=== PATIENT | female | born 1940 | race Caucasian/White ===

== ENCOUNTER 2019-04-18 06:44 | Day surgery (SDC) | payer MEDICARE, OTHER ==
[2019-04-16 12:57] VITALS: BMI 25.3
[~2019-04-18 06:44] MED LIST: DEXAMETHASONE SOD PHOSPHATE 10 MG/ML 1 ML VIAL IV ONE; HEPARIN SODIUM,PORCINE 5,000 UNIT/ML 1 ML VIAL SQ ONE; HYDROmorphone 0.5 MG/0.5 ML SYRINGE IVP PRN; LACTATED RINGERS 1,000 ML IV SCH; LIDOCAINE 1% 20 ML VIAL (10MG/ML) FOR IV START INTRADERMA PRN; ONDANSETRON 4 MG/2 ML VIAL IVP ONE; Pre Op ABX Message 1 EACH MISC MISCELLANE ONE; fentaNYL (PF) 50 MCG/ML 2 ML AMP IV PRN
[2019-04-18] MEDS ORDERED: SUCCINYLCHOLINE CHLORIDE 100 MG/5 ML SYR IV ONE (07:44)
[2019-04-18] MEDS ORDERED: fentaNYL (PF) 50 MCG/ML 2 ML AMP ONE (07:44)
[2019-04-18] MEDS ORDERED: PROPOFOL 10 MG/ML 20 ML VIAL IV ONE (07:44)
--- NOTE | 2019-04-18 08:00 | P.GSHP ---
History of Present Illness H&P Date: 04/18/19 Chief Complaint: Left buttock lipoma This a 78-year-old female who has developed a 10 cm left buttock lipoma. She presents today for excision. Past Medical History Past Medical History: CVA/TIA, Hyperlipidemia, Hypertension, Memory Impairment, Neurologic Disorder, Osteoarthritis (OA) Additional Past Medical History / Comment(s): CVA October 2018, no residual effects, memory problems, Parkinson's. History of Any Multi-Drug Resistant Organisms: None Reported Past Surgical History: Back Surgery, Tonsillectomy Additional Past Surgical History / Comment(s): Back fusions X2, 2 rods in back. Past Anesthesia/Blood Transfusion Reactions: No Reported Reaction Past Psychological History: No Psychological Hx Reported Smoking Status: Former smoker Past Alcohol Use History: Occasional Additional Past Alcohol Use History / Comment(s): Social smoker when young. Past Drug Use History: None Reported - Past Family History Mother Family Medical History: No Reported History Medications and Allergies Home Medications Medication Instructions Recorded Confirmed Type Ascorbic Acid [Vitamin C] 500 mg PO DAILY 04/16/19 04/16/19 History Aspirin [Adult Low Dose Aspirin EC] 81 mg PO DAILY 04/16/19 04/16/19 History Atorvastatin [Lipitor] 40 mg PO DAILY 04/16/19 04/16/19 History Calcium Carbonate [Calcium] 600 mg PO DAILY 04/16/19 04/16/19 History Carbidopa-Levodopa 25-100 mg 1 each PO TID 04/16/19 04/16/19 History [Sinemet 25-100] Cholecalciferol [Vitamin D3 (25 1,000 unit PO DAILY 04/16/19 04/16/19 History Mcg = 1000 Iu)] Clopidogrel [Plavix] 75 mg PO DAILY 04/16/19 04/16/19 History Donepezil HCl [Aricept] 10 mg PO BID 04/16/19 04/16/19 History Lisinopril [Zestril] 5 mg PO QAM 04/16/19 04/16/19 History traMADol HCL 50 mg PO DAILY PRN 04/16/19 04/16/19 History Allergies Allergy/AdvReac Type Severity Reaction Status Date / Time No Known Allergies Allergy Verified 04/16/19 13:03 Surgical - Exam Vital Signs Temp Pulse BP Pulse Ox 98 F 95 125/62 96 04/18/19 07:03 04/18/19 07:03 04/18/19 07:03 04/18/19 07:03 - General well developed, well nourished, no distress - Eyes PERRL - Neck no masses - Respiratory normal expansion - Cardiovascular Rhythm: regular - Abdomen Abdomen: soft, non tender Assessment and Plan Assessment: Left buttock lipoma. We'll perform excision.
[2019-04-18] MEDS ORDERED: SODIUM CHLORIDE 0.9% 50 ML with ceFAZolin 2,000 MG IV ONE ×2 (08:20)
[2019-04-18] MEDS ORDERED: BUPIVACAINE (PF) 0.25% 30 ML VIAL SQ ONE (08:52)
[2019-04-18 09:08] VITALS: TEMP 97.6
[2019-04-18 10:28] VITALS: BP 125/74; PULSE 77; RESP 16
[2019-04-18] MEDS ORDERED: HYDROcodone/APAP 5-325MG 1 EACH TAB PO ONE (10:34)
--- NOTE | 2019-05-14 16:52 | P.OP ---
Date of Procedure: 04/18/19 Preoperative Diagnosis: Left buttock lipoma Postoperative Diagnosis: Left buttock lipoma Procedure(s) Performed: Excision of left buttock lipoma Anesthesia: MAC Surgeon: Bradford Villasenor Estimated Blood Loss (ml): 5 Pathology: other (Lipoma) Condition: stable Disposition: PACU Description of Procedure: The patient's placed on the operating table in the lateral position. She received IV sedation. Her left buttock was prepped and draped in usual sterile fashion. The skin was anesthetized 1% local Xylocaine. Then using a 15 blade the skin was incised. A large cautery was used to dissect the lipoma free. Lipomas approximate 5 cm in diameter. The Bovie hemostasis. The skin was closed interrupted 3-0 Monocryl suture. Dermabond was applied. Patient top she will was sent to recovery room in stable condition.
== END 2019-04-18 11:07 | disposition home or self-care (01) ==
LOC: OR 06:44
PROVIDERS: ATTEND Surgery
DX: D17.1 Benign lipomatous neoplasm of skin and subcutaneous tissue of trunk (principal); E78.5 Hyperlipidemia, unspecified; I10 Essential (primary) hypertension; R41.3 Other amnesia; G20 Parkinson's disease; Z87.891 Personal history of nicotine dependence; Z98.1 Arthrodesis status; Z86.73 Personal history of transient ischemic attack (TIA), and cerebral infarction without residual deficits; Z79.02 Long term (current) use of antithrombotics/antiplatelets; Z79.82 Long term (current) use of aspirin; Z79.899 Other long term (current) drug therapy
CPT/HCPCS: 88304; 11406; J1644; J1100; J2405; J0690; J3010; J0330; J2704

== ENCOUNTER → 2019-08-16 | Outpatient (CLI) | payer MEDICARE, OTHER ==
[2019-08-16 11:16] LABS: HCT 39.4 % (34.0-46.0); HGB 12.5 gm/dL (11.4-16.0); MCH 29.8 pg (25.0-35.0); MCHC 31.7 g/dL (31.0-37.0); MCV 93.9 fL (80.0-100.0); Mean Platelet Volume 8.1; Platelet Count 157 k/uL (150-450); RBC 4.19 m/uL (3.80-5.40); WBC 5.3 k/uL (3.8-10.6)
[2019-08-16 16:39] LABS: African American GFR (CKD) 71.5 (60.0-200.0); Anion Gap 11.2 mmol/L (4.00-12.00); Carbon Dioxide 23.8 mmol/L (21.6-31.8); Non-African American GFR(CKD) 61.7 (60.0-200.0); Potassium 4.3 mmol/L (3.5-5.5)
== END | disposition home or self-care (01) ==
LOC: LABWHC1 10:19
PROVIDERS: ATTEND Internal Medicine Cardiovascular Disease
DX: I48.11 Longstanding persistent atrial fibrillation (principal)
CPT/HCPCS: 36415; 80051; 82565; 84443; 84520; 85027

== ENCOUNTER 2019-08-26 16:24 | Inpatient (IN) | payer MEDICARE, OTHER ==
[2019-08-26] MEDS ORDERED: DILTIAZEM 125 MG in SODIUM CHLORIDE 0.9% 100 ML IV SCH (17:00)
--- NOTE | 2019-08-26 17:00 | ED ---
General Adult HPI - General Chief complaint: Arrhythmia/Palpitations Stated complaint: sent by dr/heart issues Time Seen by Provider: 08/26/19 16:41 Source: patient, family, RN notes reviewed Mode of arrival: wheelchair Limitations: no limitations - History of Present Illness Initial comments: Patient is a pleasant 79-year-old female presenting to the emergency department with fatigue and palpitations. Patient was recently diagnosed with atrial fibri llation as an outpatient by cardiology and started on blood thinners. Patient has been more fatigued the past couple of days. Patient does admit to feeling like her heart is racing. 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 - Related Data Home Medications Medication Instructions Recorded Confirmed Ascorbic Acid [Vitamin C] 500 mg PO DAILY 04/16/19 04/16/19 Aspirin [Adult Low Dose Aspirin EC] 81 mg PO DAILY 04/16/19 04/16/19 Atorvastatin [Lipitor] 40 mg PO DAILY 04/16/19 04/16/19 Calcium Carbonate [Calcium] 600 mg PO DAILY 04/16/19 04/16/19 Carbidopa-Levodopa 25-100 mg 1 each PO TID 04/16/19 04/16/19 [Sinemet 25-100] Cholecalciferol [Vitamin D3 (25 1,000 unit PO DAILY 04/16/19 04/16/19 Mcg = 1000 Iu)] Clopidogrel [Plavix] 75 mg PO DAILY 04/16/19 04/16/19 Donepezil HCl [Aricept] 10 mg PO BID 04/16/19 04/16/19 Lisinopril [Zestril] 5 mg PO QAM 04/16/19 04/16/19 traMADol HCL 50 mg PO DAILY PRN 04/16/19 04/16/19 Previous Rx's Medication Instructions Recorded Docusate [Colace] 100 mg PO BID #20 capsule 04/18/19 HYDROcodone/APAP 5-325MG [[place] 1 tab PO Q6HR PRN #10 tab 04/18/19 5-325] Allergies Allergy/AdvReac Type Severity Reaction Status Date / Time No Known Allergies Allergy Verified 04/16/19 13:03 Review of Systems ROS Statement: Those systems with pertinent positive or pertinent negative responses have been documented in the HPI. ROS Other: All systems not noted in ROS Statement are negative. Constitutional: Denies: fever Eyes: Denies: eye pain ENT: Denies: ear pain Respiratory: Denies: cough Cardiovascular: Reports: palpitations. Denies: chest pain Endocrine: Reports: fatigue Gastrointestinal: Denies: abdominal pain Genitourinary: Denies: dysuria Musculoskeletal: Denies: arthralgia Skin: Denies: rash Neurological: Reports: as per HPI. Denies: confusion Past Medical History Past Medical History: CVA/TIA, Hyperlipidemia, Hypertension, Memory Impairment, Neurologic Disorder, Osteoarthritis (OA) Additional Past Medical History / Comment(s): CVA October 2018, no residual effects, memory problems, Parkinson's. History of Any Multi-Drug Resistant Organisms: None Reported Past Surgical History: Back Surgery, Tonsillectomy Additional Past Surgical History / Comment(s): Back fusions X2, 2 rods in back. Past Anesthesia/Blood Transfusion Reactions: No Reported Reaction Past Psychological History: No Psychological Hx Reported Smoking Status: Former smoker Past Alcohol Use History: Occasional Past Drug Use History: None Reported - Past Family History Mother Family Medical History: No Reported History General Exam Limitations: no limitations General appearance: alert, in no apparent distress Head exam: Present: normocephalic Eye exam: Present: normal appearance, PERRL, EOMI. Absent: nystagmus ENT exam: Present: normal oropharynx Neck exam: Present: normal inspection Respiratory exam: Present: normal lung sounds bilaterally Cardiovascular Exam: Present: tachycardia, irregular rhythm Expanded Peripheral pulses: 2+: Radial (R), Radial (L), Posterior Tibialis (R), Posterior Tibialis (L), Dorsalis Pedis (R), Dorsalis Pedis (L) GI/Abdominal exam: Present: soft. Absent: tenderness Extremities exam: Present: pedal edema. Absent: calf tenderness Back exam: Present: normal inspection Neurological exam: Present: alert, CN II-XII intact. Absent: motor sensory deficit Expanded Neurological exam: Present: protecting the airway Speech: Present: fluid speech Cranial nerves: EOM's Intact: Abnormal Right Motor strength exam: RUE: 5, LUE: 5, RLE: 5, LLE: 5 Eye Response: (4) open spontaneously Motor Response: (6) obeys commands Verbal Response: (5) oriented Psychiatric exam: Present: normal affect, normal mood Skin exam: Present: normal color Course Vital Signs 08/26/19 08/26/19 16:32 18:02 Temperature 98.7 F Pulse Rate 148 H 122 H Respiratory 18 18 Rate Blood Pressure 116/84 116/89 O2 Sat by Pulse 98 99 Oximetry EKG Findings - EKG Comments: EKG Findings:: A. fib with RVR, rate 131. QRS 78. QT 294. QTC 434. Right axis. Normal QRS. No acute ST change. Medical Decision Making - Medical Decision Making Patient reevaluated and resting comfortably in bed. Heart rate has improved and is around 122, still atrial fibrillation. Patient feels somewhat better. Patient and family updated on results and plan. Case was discussed in detail with Dr. Calderon, who will admit for Dr. Cardenas. - Lab Data Result diagrams: 08/26/19 17:20 08/26/19 17:20 Lab Results 08/26/19 08/26/19 08/26/19 Range/Units 17:20 17:20 17:20 WBC 13.0 H (3.8-10.6) k/uL RBC 3.66 L (3.80-5.40) m/uL Hgb 11.1 L (11.4-16.0) gm/dL Hct 33.3 L (34.0-46.0) % MCV 90.8 (80.0-100.0) fL MCH 30.3 (25.0-35.0) pg MCHC 33.4 (31.0-37.0) g/dL RDW 14.9 (11.5-15.5) % Plt Count 120 L (150-450) k/uL Neutrophils % 90 % Lymphocytes % 3 % Monocytes % 5 % Eosinophils % 1 % Basophils % 0 % Neutrophils # 11.7 H (1.3-7.7) k/uL Lymphocytes # 0.4 L (1.0-4.8) k/uL Monocytes # 0.7 (0-1.0) k/uL Eosinophils # 0.1 (0-0.7) k/uL Basophils # 0.0 (0-0.2) k/uL PT 11.5 (9.0-12.0) sec INR 1.1 (<1.2) APTT 29.0 (22.0-30.0) sec Sodium 128 L (137-145) mmol/L Potassium 4.3 (3.5-5.1) mmol/L Chloride 98 (98-107) mmol/L Carbon Dioxide 21 L (22-30) mmol/L Anion Gap 9 mmol/L BUN 24 H (7-17) mg/dL Creatinine 0.66 (0.52-1.04) mg/dL Est GFR (CKD-EPI)AfAm >90 (>60 ml/min/1.73 sqM) Est GFR (CKD-EPI)NonAf 86 (>60 ml/min/1.73 sqM) Glucose 128 H (74-99) mg/dL Calcium 8.5 (8.4-10.2) mg/dL Magnesium 1.8 (1.6-2.3) mg/dL Total Bilirubin 1.2 (0.2-1.3) mg/dL AST 43 H (14-36) U/L ALT 15 (4-34) U/L Alkaline Phosphatase 94 (38-126) U/L Creatine Kinase 59 (30-135) U/L Troponin I (0.000-0.034) ng/mL Total Protein 6.1 L (6.3-8.2) g/dL Albumin 3.3 L (3.5-5.0) g/dL 08/26/19 Range/Units 17:20 WBC (3.8-10.6) k/uL RBC (3.80-5.40) m/uL Hgb (11.4-16.0) gm/dL Hct (34.0-46.0) % MCV (80.0-100.0) fL MCH (25.0-35.0) pg MCHC (31.0-37.0) g/dL RDW (11.5-15.5) % Plt Count (150-450) k/uL Neutrophils % % Lymphocytes % % Monocytes % % Eosinophils % % Basophils % % Neutrophils # (1.3-7.7) k/uL Lymphocytes # (1.0-4.8) k/uL Monocytes # (0-1.0) k/uL Eosinophils # (0-0.7) k/uL Basophils # (0-0.2) k/uL PT (9.0-12.0) sec INR (<1.2) APTT (22.0-30.0) sec Sodium (137-145) mmol/L Potassium (3.5-5.1) mmol/L Chloride (98-107) mmol/L Carbon Dioxide (22-30) mmol/L Anion Gap mmol/L BUN (7-17) mg/dL Creatinine (0.52-1.04) mg/dL Est GFR (CKD-EPI)AfAm (>60 ml/min/1.73 sqM) Est GFR (CKD-EPI)NonAf (>60 ml/min/1.73 sqM) Glucose (74-99) mg/dL Calcium (8.4-10.2) mg/dL Magnesium (1.6-2.3) mg/dL Total Bilirubin (0.2-1.3) mg/dL AST (14-36) U/L ALT (4-34) U/L Alkaline Phosphatase (38-126) U/L Creatine Kinase (30-135) U/L Troponin I <0.012 (0.000-0.034) ng/mL Total Protein (6.3-8.2) g/dL Albumin (3.5-5.0) g/dL - Radiology Data Radiology results: image reviewed Critical Care Time Critical Care Time: Yes Total Critical Care Time: 32 Disposition Clinical Impression: Atrial fibrillation with RVR, Hyponatremia Disposition: ADMITTED IP TO THIS HOSP Is patient prescribed a controlled substance at d/c from ED?: No Referrals: Omaira Cardenas MD [Primary Care Provider] - 1-2 days Decision Time: 18:08
[2019-08-26 17:35] LABS: Basophils % (A) 0 %; Eosinophils # (A) 0.1 k/uL (0-0.7); Eosinophils % (A) 1 %; HCT 33.3 % (34.0-46.0); HGB 11.1 gm/dL (11.4-16.0); Lymphocytes # (A) 0.4 k/uL (1.0-4.8); Lymphocytes % (A) 3 %; MCH 30.3 pg (25.0-35.0); MCHC 33.4 g/dL (31.0-37.0); MCV 90.8 fL (80.0-100.0); Mean Platelet Volume 8.6; Monocytes # (A) 0.7 k/uL (0-1.0); Monocytes % (A) 5 %; Neutrophils # (A) 11.7 k/uL (1.3-7.7); Neutrophils % (A) 90 %; Platelet Count 120 k/uL (150-450); RBC 3.66 m/uL (3.80-5.40); RDW 14.9 % (11.5-15.5)
[2019-08-26 17:39] LABS: INR 1.1 (<1.2); Prothrombin Time 11.5 sec (9.0-12.0)
[2019-08-26 17:48] LABS: ALT 15 U/L (4-34); AST 43 U/L (14-36); African American GFR (CKD) >90 (>60 ml/min/1.73 sqM); Albumin 3.3 g/dL (3.5-5.0); Alkaline Phosphatase 94 U/L (38-126); Anion Gap 9 mmol/L; Blood Urea Nitrogen 24 mg/dL (7-17); Calcium 8.5 mg/dL (8.4-10.2); Carbon Dioxide 21 mmol/L (22-30); Chloride 98 mmol/L (98-107); Creatine Kinase 59 U/L (30-135); Glucose 128 mg/dL (74-99); Magnesium 1.8 mg/dL (1.6-2.3); Non-African American GFR(CKD) 86 (>60 ml/min/1.73 sqM); Potassium 4.3 mmol/L (3.5-5.1); Sodium 128 mmol/L (137-145); Total Bilirubin 1.2 mg/dL (0.2-1.3); Total Protein 6.1 g/dL (6.3-8.2)
[2019-08-26] MEDS ORDERED: NALOXONE 0.4 MG/ML 1 ML VIAL IV PRN (18:08)
--- NOTE | 2019-08-26 18:14 | XR ---
EXAMINATION TYPE: XR chest 2V DATE OF EXAM: 08/26/2019 COMPARISON: NONE HISTORY: Dizziness. Weakness. TECHNIQUE: FINDINGS: There is no heart failure nor confluent pneumonic infiltrate. Costophrenic angles are clear . There are chest leads. Thoracic aorta is atheromatous. Exam limited by the arms over the heart on t he lateral view. IMPRESSION: No active cardiopulmonary disease. Normal heart.
[2019-08-26] MEDS: SODIUM CHLORIDE 0.9% 1,000 ML IV SCH (18:27)
[2019-08-26] MEDS: HYDROcodone/APAP 5-325MG 1 EACH TAB PO PRN (22:26)
[2019-08-26] MEDS: APIXABAN 5 MG TAB PO SCH (22:26)
[2019-08-26] MEDS: CARBIDOPA-LEVODOPA 25-100 MG 1 EACH TAB PO SCH (22:26)
[2019-08-26] MEDS: ATORVASTATIN 40 MG TAB PO SCH (22:26)
[2019-08-26 23:24] LABS: Appearance,Urine Cloudy (Clear); Bacteria,Urine Rare /hpf; Bilirubin,Urine Negative (Negative); Blood,Urine Negative (Negative); Color,Urine Yellow; Glucose,Urine (UA) Negative (Negative); Hyaline Casts,Urine 1 /lpf (0-2); Ketones,Urine Negative (Negative); Leukocyte Esterase,Urine Small (Negative); Mucus,Urine Occasional /hpf; Nitrite,Urine Negative (Negative); Protein,Urine 1+ (Negative); RBC,Urine 4 /hpf (0-5); Specific Gravity,Urine 1.032 (1.001-1.035); Squamous Epithelial Cell,Urine 1 /hpf (0-4); WBC,Urine 9 /hpf (0-5)
[2019-08-27 07:21] LABS: Anion Gap 7 mmol/L; Carbon Dioxide 23 mmol/L (22-30); Chloride 100 mmol/L (98-107); Glucose 92 mg/dL (74-99); Potassium 3.7 mmol/L (3.5-5.1); Sodium 130 mmol/L (137-145)
[2019-08-27 07:22] LABS: African American GFR (CKD) >90 (>60 ml/min/1.73 sqM); Blood Urea Nitrogen 20 mg/dL (7-17); Non-African American GFR(CKD) 85 (>60 ml/min/1.73 sqM)
[2019-08-27] MEDS: SODIUM CHLORIDE 0.9% 1,000 ML IV SCH ×2 (08:39→21:05)
[2019-08-27] MEDS: CARBIDOPA-LEVODOPA 25-100 MG 1 EACH TAB PO SCH ×4 (08:39→21:04)
[2019-08-27] MEDS: DONEPEZIL 10 MG TAB PO SCH ×2 (08:39→21:03)
[2019-08-27] MEDS: APIXABAN 5 MG TAB PO SCH ×2 (08:39→21:03)
--- NOTE | 2019-08-27 08:41 | P.CRDCN ---
History of Present Illness Consult date: 08/27/19 Requesting physician: Samuel Calderon Consult reason: atrial fibrillation Chief complaint: Palpitations, weakness History of present illness: This is a pleasant 79-year-old female who recently has seen Dr. Dwyer in the office last month, she has a history of hypertension, hyperlipidemia, Parkinson's, prior CVA. On August [address] Dwyer in the office, for new onset of atrial fibrillation. Patient was initiated on anticoagulation as well as metoprolol. She presents to the hospital on this occasion with symptoms of palpitations, severe progressive weakness in her lower extremities, and worsening fatigue. The patient states it's hard to know whether this is from her Parkinson's or the A. fib. Her family encouraged her to come to the emergency room for further evaluation and treatment. EKG on arrival here showed atrial fibrillation with a rapid ventricular response. Chest x-ray did not reveal any active cardiopulmonary disease. Blood pressure 126/60 with a heart rate this morning of 120, 100% on room air. White blood cell count 13.0, hemoglobin 11.1, platelet count 120. Sodium on admission 128, 1:30 this morning, potassium 3.7, BUN 20, creatinine 0.6, magnesium 1.8. Troponins are negative 3. At the time of my examination this morning, patient is resting comfortably in bed, she still feels palpitations in the chest, and states that her legs feeling extremely weak. She is currently on a Cardizem drip at 5 mg per hour. Past Medical History Past Medical History: CVA/TIA, Hyperlipidemia, Hypertension, Memory Impairment, Neurologic Disorder, Osteoarthritis (OA) Additional Past Medical History / Comment(s): CVA October 2017, no residual effects, memory problems, Parkinson's. History of Any Multi-Drug Resistant Organisms: None Reported Past Surgical History: Back Surgery, Tonsillectomy Additional Past Surgical History / Comment(s): Back fusions X2, 2 rods in back. Past Anesthesia/Blood Transfusion Reactions: No Reported Reaction Past Psychological History: No Psychological Hx Reported Smoking Status: Never smoker Past Alcohol Use History: Occasional Additional Past Alcohol Use History / Comment(s): Social smoker when young. Past Drug Use History: None Reported - Past Family History Mother Family Medical History: No Reported History Medications and Allergies Home Medications Medication Instructions Recorded Confirmed Type Ascorbic Acid [Vitamin C] 500 mg PO DAILY 04/16/19 08/26/19 History Aspirin [Adult Low Dose Aspirin EC] 81 mg PO DAILY 04/16/19 08/26/19 History Atorvastatin [Lipitor] 40 mg PO DAILY 04/16/19 08/26/19 History Calcium Carbonate [Calcium] 600 mg PO DAILY 04/16/19 08/26/19 History Carbidopa-Levodopa 25-100 mg 1 tab PO QID 04/16/19 08/26/19 History [Sinemet 25-100] Cholecalciferol [Vitamin D3 (25 1,000 unit PO DAILY 04/16/19 08/26/19 History Mcg = 1000 Iu)] Donepezil HCl [Aricept] 10 mg PO BID 04/16/19 08/26/19 History Apixaban [Eliquis] 5 mg PO BID 08/26/19 08/26/19 History Docusate [Colace] 100 mg PO BID PRN 08/26/19 08/26/19 History Metoprolol Succinate [Toprol XL] 50 mg PO DAILY 08/26/19 08/26/19 History Allergies Allergy/AdvReac Type Severity Reaction Status Date / Time No Known Allergies Allergy Verified 08/26/19 19:02 Physical Exam Vitals: Vital Signs Temp Pulse Pulse Resp BP BP Pulse Ox 08/27/19 03:50 91/49 08/27/19 02:01 98.8 F 110 H 17 126/62 97 08/27/19 00:00 98.8 F 109 H 17 121/67 97 08/26/19 20:03 98.2 F 101 H 18 100/62 98 08/26/19 19:20 107 H 18 111/73 98 08/26/19 18:27 109 H 18 116/89 98 08/26/19 18:02 122 H 18 116/89 99 08/26/19 16:32 98.7 F 148 H 18 116/84 98 Intake and Output 08/26/19 08/27/19 08/27/19 22:59 06:59 14:59 Intake Total 25 Output Total 200 300 Balance -175 -300 Intake: Intake, IV Titration 25 Amount Diltiazem 125 mg In 25 Sodium Chloride 0.9% 100 ml @ 5 MG/HR 5 mls/hr IV .Q24H [facility] Rx#:[id number] Output: Urine 200 300 Other: Voiding Method Bedside Commode # Voids 1 Weight 68.039 kg 82 kg PHYSICAL EXAMINATION: GENERAL: 79-year-old female in no acute distress at the time of my examination HEENT: Head is atraumatic, normocephalic. Pupils equal, round. Sclera anicteric. Conjunctiva are clear. Mucous membranes of the mouth are moist. Neck is supple. There is no elevated jugular venous pressure. No carotid bruit is heard. HEART EXAMINATION: Heart S1 and S2 irregularly irregular a systolic murmur is heard CHEST EXAMINATION: Lungs are clear to auscultation and precussion. No chest wall tenderness is noted on palpation or with deep breathing. ABDOMEN: Soft, nontender. Bowel sounds are heard. No organomegaly noted. EXTREMITIES: 2+ peripheral pulses with trace evidence of peripheral edema and no calf tenderness noted. NEUROLOGIC patient is awake, alert and oriented 3 . . Results 08/26/19 17:20 08/27/19 05:44 Cardiac Enzymes 08/26/19 08/26/19 08/26/19 Range/Units 17:20 17:20 22:22 AST 43 H (14-36) U/L Troponin I <0.012 <0.012 (0.000-0.034) ng/mL 08/27/19 Range/Units 05:44 AST (14-36) U/L Troponin I <0.012 (0.000-0.034) ng/mL Coagulation 08/26/19 Range/Units 17:20 PT 11.5 (9.0-12.0) sec APTT 29.0 (22.0-30.0) sec CBC 08/26/19 Range/Units 17:20 WBC 13.0 H (3.8-10.6) k/uL RBC 3.66 L (3.80-5.40) m/uL Hgb 11.1 L (11.4-16.0) gm/dL Hct 33.3 L (34.0-46.0) % Plt Count 120 L (150-450) k/uL Comprehensive Metabolic Panel 08/26/19 08/27/19 Range/Units 17:20 05:44 Sodium 128 L 130 L (137-145) mmol/L Potassium 4.3 3.7 (3.5-5.1) mmol/L Chloride 98 100 (98-107) mmol/L Carbon Dioxide 21 L 23 (22-30) mmol/L BUN 24 H 20 H (7-17) mg/dL Creatinine 0.66 0.67 (0.52-1.04) mg/dL Glucose 128 H 92 (74-99) mg/dL Calcium 8.5 8.0 L (8.4-10.2) mg/dL AST 43 H (14-36) U/L ALT 15 (4-34) U/L Alkaline Phosphatase 94 (38-126) U/L Total Protein 6.1 L (6.3-8.2) g/dL Albumin 3.3 L (3.5-5.0) g/dL Current Medications Generic Name Dose Route Start Last Admin Trade Name Freq PRN Reason Stop Dose Admin Hydrocodone Bitart/Acetaminophen 1 each 08/26/19 21:21 08/26/19 22:26 [place] 5-325 PO 1 each Q6HR PRN Administration Pain Apixaban 5 mg 08/26/19 21:30 08/26/19 22:26 Eliquis PO 5 mg BID CARLYLE Administration Atorvastatin Calcium 40 mg 08/26/19 21:30 08/26/19 22:26 Lipitor PO 40 mg HS CARLYLE Administration Carbidopa/Levodopa 1 each 08/26/19 22:00 08/26/19 22:26 Sinemet 25-100 PO 1 each QID CARLYLE Administration Donepezil HCl 10 mg 08/27/19 09:00 Aricept PO BID CARLYLE Diltiazem HCl 125 mg/ Sodium 125 mls @ 5 mls/hr 08/26/19 17:00 08/26/19 17:24 Chloride IV 5 mg/hr .Q24H CARLYLE 5 mls/hr Administration 5 MG/HR Sodium Chloride 1,000 mls @ 75 mls/hr 08/26/19 18:15 08/26/19 18:27 Saline 0.9% IV 75 mls/hr .[id number] CARLYLE Administration Metoprolol Succinate 50 mg 08/27/19 09:00 Toprol Xl PO DAILY CARLYLE Naloxone HCl 0.2 mg 08/26/19 18:08 Narcan IV Q2M PRN Opioid Reversal Intake and Output 08/26/19 08/27/19 08/27/19 22:59 06:59 14:59 Intake Total 25 Output Total 200 300 Balance -175 -300 Intake: Intake, IV Titration 25 Amount Diltiazem 125 mg In 25 Sodium Chloride 0.9% 100 ml @ 5 MG/HR 5 mls/hr IV .Q24H [facility] Rx#:[id number] Output: Urine 200 300 Other: Voiding Method Bedside Commode # Voids 1 Weight 68.039 kg 82 kg 08/26/19 17:20 08/27/19 05:44 EKG Interpretations (text) EKG shows atrial fibrillation with a rapid ventricular response Assessment and Plan Plan: Assessment and plan #1 atrial fibrillation with rapid ventricular response, chronic persistent #2 recent diagnosis of atrial fibrillation, patient was initiated on Eliquis and Toprol #3 hypertension #4 hyperlipidemia #5 Parkinson's Plan We will obtain a TSH level as well as an echocardiogram with Doppler study. Increase her dose of Toprol. Discontinue IV Cardizem drip. Continue Eliquis 5 mg one tablet by mouth twice a day. Further recommendations to follow. DNP note has been reviewed, I agree with a documented findings and plan of care. Patient was seen and examined.
[2019-08-27] MEDS ORDERED: METOPROLOL SUCCINATE (ER) 25 MG TAB.ER.24H PO STA (08:42)
[2019-08-27] MEDS: METOPROLOL SUCCINATE (ER) 25 MG TAB.ER.24H PO SCH (08:45)
[2019-08-27] MEDS ORDERED: METOPROLOL SUCCINATE (ER) 50 MG TAB.ER.24H PO SCH (09:00)
--- NOTE | 2019-08-27 11:49 | P.HPIM ---
History of Present Illness H&P Date: 08/27/19 Chief Complaint: weakness, shortness of breath Yris Isaac is a 79 yo F with PMH of recently diagnosed atrial fibrillation, parkinson disease, CVA, HTN, HLD who presented to the ED on the recommendation of her PCP after she was found to be in RVR in clinic. Pt reports that about 2 weeks ago she was seen by her fluid power mechanic and given a new diagnosis of atrial fibrillation and was started on eliquis and metoprolol. She complains of worsening leg weakness and heaviness, fatigue, palpitations and dyspnea with exertion over the past few days. She reports that she is chronically fatigued and slow from the parkinson's but feels it had worsened. She went to see her primary physician yesterday and was found to have a HR in 130s so was advised to present to the ED. In the ED she was found to be in A fib RVR with stable blood pressure. Labs significant for WBC 13k, Na 128, trop negative x3, CXR no acute process. Pt was started on cardizem and rate is currently controlled at 5 mg per hr. She continues to complain of fatigue, palpitations and leg heaviness. Review of Systems All systems: negative Constitutional: Reports as per HPI, Reports fatigue, Reports weakness, Denies chills, Denies fever Eyes: denies blurred vision, denies pain Ears, nose, mouth and throat: Denies headache, Denies sore throat Cardiovascular: Reports decreased exercise tolerance, Reports dyspnea on exertion, Reports irregular heart beat, Reports palpitations, Denies chest pain, Denies shortness of breath Respiratory: Denies cough Gastrointestinal: Denies abdominal pain, Denies diarrhea, Denies nausea, Denies vomiting Genitourinary: Denies dysuria, Denies hematuria Musculoskeletal: Denies myalgias Integumentary: Denies pruritus, Denies rash Neurological: Reports balance difficulties, Reports weakness, Denies numbness Psychiatric: Denies anxiety, Denies depression Endocrine: Denies fatigue, Denies weight change Past Medical History Past Medical History: CVA/TIA, Hyperlipidemia, Hypertension, Memory Impairment, Neurologic Disorder, Osteoarthritis (OA) Additional Past Medical History / Comment(s): CVA October 2017, no residual effects, memory problems, Parkinson's. History of Any Multi-Drug Resistant Organisms: None Reported Past Surgical History: Back Surgery, Tonsillectomy Additional Past Surgical History / Comment(s): Back fusions X2, 2 rods in back. Past Anesthesia/Blood Transfusion Reactions: No Reported Reaction Past Psychological History: No Psychological Hx Reported Smoking Status: Never smoker Past Alcohol Use History: Occasional Additional Past Alcohol Use History / Comment(s): Social smoker when young. Past Drug Use History: None Reported - Past Family History Mother Family Medical History: No Reported History Medications and Allergies Home Medications Medication Instructions Recorded Confirmed Type Ascorbic Acid [Vitamin C] 500 mg PO DAILY 04/16/19 08/26/19 History Aspirin [Adult Low Dose Aspirin EC] 81 mg PO DAILY 04/16/19 08/26/19 History Atorvastatin [Lipitor] 40 mg PO DAILY 04/16/19 08/26/19 History Calcium Carbonate [Calcium] 600 mg PO DAILY 04/16/19 08/26/19 History Carbidopa-Levodopa 25-100 mg 1 tab PO QID 04/16/19 08/26/19 History [Sinemet 25-100] Cholecalciferol [Vitamin D3 (25 1,000 unit PO DAILY 04/16/19 08/26/19 History Mcg = 1000 Iu)] Donepezil HCl [Aricept] 10 mg PO BID 04/16/19 08/26/19 History Apixaban [Eliquis] 5 mg PO BID 08/26/19 08/26/19 History Docusate [Colace] 100 mg PO BID PRN 08/26/19 08/26/19 History Metoprolol Succinate [Toprol XL] 50 mg PO DAILY 08/26/19 08/26/19 History Allergies Allergy/AdvReac Type Severity Reaction Status Date / Time No Known Allergies Allergy Verified 08/26/19 19:02 Physical Exam Vitals: Vital Signs Temp Pulse Pulse Resp BP BP Pulse Ox 08/27/19 08:05 98.8 F 107 H 17 127/58 100 08/27/19 08:00 107 H 17 08/27/19 03:50 91/49 08/27/19 02:01 98.8 F 110 H 17 126/62 97 08/27/19 00:00 98.8 F 109 H 17 121/67 97 08/26/19 20:03 98.2 F 101 H 18 100/62 98 08/26/19 19:20 107 H 18 111/73 98 08/26/19 18:27 109 H 18 11689 98 08/26/19 18:02 122 H 18 11689 99 08/26/19 16:32 98.7 F 148 H 18 116/84 98 Intake and Output 08/26/19 08/27/19 08/27/19 22:59 06:59 14:59 Intake Total 25 400 Output Total 200 300 Balance -175 100 Intake: Intake, IV Titration 25 Amount Diltiazem 125 mg In 25 Sodium Chloride 0.9% 100 ml @ 5 MG/HR 5 mls/hr IV .Q24H [facility] Rx#:[id number] Oral 400 Output: Urine 200 300 Other: Voiding Method Bedside Commode Bedside Commode # Voids 1 Weight 68.039 kg 82 kg General: well nourished, well developed, NAD. Vitals reviewed Eyes: PERRL, EOMI, conjunctiva normal HENT: normocephalic, mucus membranes moist Neck: supple, no JVD Lungs: normal respiratory effort, no wheezes or rales CV: Irregularly irregular, no murmur. Peripheral pulses 1+ Abdomen: soft, nondistended, no organomegaly Lymph: no cervical or axillary LAD Skin: warm and dry. Neuro: A&Ox3, normal mood and affect. No tremor. Bilateral LE weakness Results CBC & Chem 7: 08/26/19 17:20 08/27/19 05:44 Labs: Abnormal Lab Results - Last 24 Hours (Table) 08/26/19 08/26/19 08/26/19 Range/Units 17:20 17:20 23:00 WBC 13.0 H (3.8-10.6) k/uL RBC 3.66 L (3.80-5.40) m/uL Hgb 11.1 L (11.4-16.0) gm/dL Hct 33.3 L (34.0-46.0) % Plt Count 120 L (150-450) k/uL Neutrophils # 11.7 H (1.3-7.7) k/uL Lymphocytes # 0.4 L (1.0-4.8) k/uL Sodium 128 L (137-145) mmol/L Carbon Dioxide 21 L (22-30) mmol/L BUN 24 H (7-17) mg/dL Glucose 128 H (74-99) mg/dL Calcium (8.4-10.2) mg/dL AST 43 H (14-36) U/L Total Protein 6.1 L (6.3-8.2) g/dL Albumin 3.3 L (3.5-5.0) g/dL Urine Appearance Cloudy H (Clear) Urine Protein 1+ H (Negative) Ur Leukocyte Esterase Small H (Negative) Urine WBC 9 H (0-5) /hpf Urine Bacteria Rare H (None) /hpf Urine Mucus Occasional H (None) /hpf 08/27/19 Range/Units 05:44 WBC (3.8-10.6) k/uL RBC (3.80-5.40) m/uL Hgb (11.4-16.0) gm/dL Hct (34.0-46.0) % Plt Count (150-450) k/uL Neutrophils # (1.3-7.7) k/uL Lymphocytes # (1.0-4.8) k/uL Sodium 130 L (137-145) mmol/L Carbon Dioxide (22-30) mmol/L BUN 20 H (7-17) mg/dL Glucose (74-99) mg/dL Calcium 8.0 L (8.4-10.2) mg/dL AST (14-36) U/L Total Protein (6.3-8.2) g/dL Albumin (3.5-5.0) g/dL Urine Appearance (Clear) Urine Protein (Negative) Ur Leukocyte Esterase (Negative) Urine WBC (0-5) /hpf Urine Bacteria (None) /hpf Urine Mucus (None) /hpf Microbiology - Last 24 Hours (Table) 08/26/19 23:00 Wound Culture - Preliminary Buttock Thrombosis Risk Factor Assmnt - Choose All That Apply Each Factor Represents 1 point: Obesity (BMI >25) Each Risk Factor Represents 3 Points: Age 75 years or older Thrombosis Risk Factor Assessment Total Risk Factor Score: 4 Thrombosis Risk Factor Assessment Level: Moderate Risk Assessment and Plan (1) Parkinson disease Current Visit: Yes Status: Acute Code(s): G20 - PARKINSON'S DISEASE SNOMED Code(s): 49865188 (2) Hyperlipidemia Current Visit: Yes Status: Acute Code(s): E78.5 - HYPERLIPIDEMIA, UNSPE CIFIED SNOMED Code(s): 00282830 (3) Atrial fibrillation with RVR Current Visit: Yes Status: Acute Code(s): I48.91 - UNSPECIFIED ATRIAL FIBRILLATION SNOMED Code(s): 269713796017354 (4) Hyponatremia Current Visit: Yes Status: Acute Code(s): E87.1 - HYPO-OSMOLALITY AND HYPONATREMIA SNOMED Code(s): 43113391 (5) CVA, old, cognitive deficits Current Visit: Yes Status: Acute Code(s): I69.319 - UNSP SYMPTOMS AND SIGNS W COGN FNCTNS FOL CEREBRAL INFRC SNOMED Code(s): 523612837 Plan: 1. Atrial fibrillation with RVR. Cardiology consulted. Pt on cardizem drip, plan to increase metoprolol and transition to PO medication. Continue eliquis 2. Parkinson disease. Stable. Continue sinemet 3. HLD. Continue lipitor 4. Hx CVA. Continue aricept
[2019-08-27] MEDS: HYDROcodone/APAP 5-325MG 1 EACH TAB PO PRN ×2 (12:36→21:04)
--- NOTE | 2019-08-27 13:08 | P.CONS ---
History of Present Illness - Reason for Consult Consult date: 08/27/19 Wound care - History of Present Illness This is a 79-year-old pleasant female who is being seen on 3 S. by with the wound care center for nonhealing ulceration to left gluteus. This patient is known to the wound care center. She presented previously with a large abscess with muscle involvement without evidence of necrosis. Patient did have a wound VAC on for quite a period of time. She has recently been changed to absorptive Silver. She continues to have significant drainage from the site with some odor however the culture has come back negative. Patient is in the hospital for atrial fibrillation at this time. Review of Systems Review Of Systems: Constitutional: No fever, no chills, no night sweats. No weight change. No weakness, fatigue or lethargy. No daytime sleepiness. Integumentary:reports wounds, no lesions. No rash or pruritus. No unusual bruising. No change in hair or nails. Past Medical History Past Medical History: CVA/TIA, Hyperlipidemia, Hypertension, Memory Impairment, Neurologic Disorder, Osteoarthritis (OA) Additional Past Medical History / Comment(s): CVA October 2017, no residual effects, memory problems, Parkinson's. History of Any Multi-Drug Resistant Organisms: None Reported Past Surgical History: Back Surgery, Tonsillectomy Additional Past Surgical History / Comment(s): Back fusions X2, 2 rods in back. Past Anesthesia/Blood Transfusion Reactions: No Reported Reaction Past Psychological History: No Psychological Hx Reported Smoking Status: Never smoker Past Alcohol Use History: Occasional Additional Past Alcohol Use History / Comment(s): Social smoker when young. Past Drug Use History: None Reported - Past Family History Mother Family Medical History: No Reported History Medications and Allergies Home Medications Medication Instructions Recorded Confirmed Type Ascorbic Acid [Vitamin C] 500 mg PO DAILY 04/16/19 08/26/19 History Aspirin [Adult Low Dose Aspirin EC] 81 mg PO DAILY 04/16/19 08/26/19 History Atorvastatin [Lipitor] 40 mg PO DAILY 04/16/19 08/26/19 History Calcium Carbonate [Calcium] 600 mg PO DAILY 04/16/19 08/26/19 History Carbidopa-Levodopa 25-100 mg 1 tab PO QID 04/16/19 08/26/19 History [Sinemet 25-100] Cholecalciferol [Vitamin D3 (25 1,000 unit PO DAILY 10/22/19 03/02/20 History Mcg = 1000 Iu)] Donepezil HCl [Aricept] 10 mg PO BID 04/16/19 08/26/19 History Apixaban [Eliquis] 5 mg PO BID 08/26/19 08/26/19 History Docusate [Colace] 100 mg PO BID PRN 08/26/19 08/26/19 History Metoprolol Succinate [Toprol XL] 50 mg PO DAILY 08/26/19 08/26/19 History Allergies Allergy/AdvReac Type Severity Reaction Status Date / Time No Known Allergies Allergy Verified 08/26/19 19:02 Physical Exam Vitals: Vital Signs Temp Pulse Pulse Resp BP BP Pulse Ox 08/27/19 12:00 85 16 08/27/19 11:45 97.6 F 85 16 100/61 100 08/27/19 08:05 98.8 F 107 H 17 127/58 100 08/27/19 08:00 107 H 17 08/27/19 03:50 91/49 08/27/19 02:01 98.8 F 110 H 17 126/62 97 08/27/19 00:00 98.8 F 109 H 17 121/67 97 08/26/19 20:03 98.2 F 101 H 18 100/62 98 08/26/19 19:20 107 H 18 111/73 98 08/26/19 18:27 109 H 18 116/89 98 08/26/19 18:02 122 H 18 116/89 99 08/26/19 16:32 98.7 F 148 H 18 116/84 98 Intake and Output 08/26/19 08/27/19 08/27/19 22:59 06:59 14:59 Intake Total 25 481.333 Output Total 200 300 Balance -175 181.333 Intake: Intake, IV Titration 25 81.333 Amount Diltiazem 125 mg In 25 81.333 Sodium Chloride 0.9% 100 ml @ 5 MG/HR 5 mls/hr IV .Q24H [facility] Rx#:[id number] Oral 400 Output: Urine 200 300 Other: Voiding Method Bedside Commode Toilet # Voids 1 1 # Bowel Movements 0 Weight 68.039 kg 82 kg Physical exam: General Appearance: Alert, cooperative, no distress, appears stated age. Skin: Left gluteus ulceration full-thickness without exposed support structures, related to an open surgical wound, measuring approximately 0.3 x 0.2 x 2 cm does have tunneling at approximately 4:00 to 2.3 cm. There is a medium amount of serous drainage noted. Foul odor after cleansing. The wound margins are defined and not attached to the wound bed granulation is seen in the wound bed. all other Skin color, texture, tugor normal, no rashes or lesions. Neurologic: Alert oriented x3 Results CBC & Chem 7: 08/26/19 17:20 08/27/19 05:44 Labs: Abnormal Lab Results - Last 24 Hours (Table) 08/26/19 08/26/19 08/26/19 Range/Units 17:20 17:20 23:00 WBC 13.0 H (3.8-10.6) k/uL RBC 3.66 L (3.80-5.40) m/uL Hgb 11.1 L (11.4-16.0) gm/dL Hct 33.3 L (34.0-46.0) % Plt Count 120 L (150-450) k/uL Neutrophils # 11.7 H (1.3-7.7) k/uL Lymphocytes # 0.4 L (1.0-4.8) k/uL Sodium 128 L (137-145) mmol/L Carbon Dioxide 21 L (22-30) mmol/L BUN 24 H (7-17) mg/dL Glucose 128 H (74-99) mg/dL Calcium (8.4-10.2) mg/dL AST 43 H (14-36) U/L Total Protein 6.1 L (6.3-8.2) g/dL Albumin 3.3 L (3.5-5.0) g/dL Urine Appearance Cloudy H (Clear) Urine Protein 1+ H (Negative) Ur Leukocyte Esterase Small H (Negative) Urine WBC 9 H (0-5) /hpf Urine Bacteria Rare H (None) /hpf Urine Mucus Occasional H (None) /hpf 08/27/19 Range/Units 05:44 WBC (3.8-10.6) k/uL RBC (3.80-5.40) m/uL Hgb (11.4-16.0) gm/dL Hct (34.0-46.0) % Plt Count (150-450) k/uL Neutrophils # (1.3-7.7) k/uL Lymphocytes # (1.0-4.8) k/uL Sodium 130 L (137-145) mmol/L Carbon Dioxide (22-30) mmol/L BUN 20 H (7-17) mg/dL Glucose (74-99) mg/dL Calcium 8.0 L (8.4-10.2) mg/dL AST (14-36) U/L Total Protein (6.3-8.2) g/dL Albumin (3.5-5.0) g/dL Urine Appearance (Clear) Urine Protein (Negative) Ur Leukocyte Esterase (Negative) Urine WBC (0-5) /hpf Urine Bacteria (None) /hpf Urine Mucus (None) /hpf Microbiology - Last 24 Hours (Table) 08/26/19 23:00 Wound Culture - Preliminary Buttock Assessment and Plan (1) 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 Change Monday. Patient continue her wound care visits next visit is planned for August 28 at 1:15. If patient continues to be inpatient at that time we will reschedule her for the next . Limit the amount of time sitting. Patient to utilize a waffle cushion while sitting. Patient verbalized understanding. Thank you kindly for the consultation. Any questions please contact the wound care center DNP note has been reviewed and discussed with Dr. Guillen and the impression and plan of care has been directed as dictated.
[2019-08-27] MEDS: ATORVASTATIN 40 MG TAB PO SCH (21:03)
[2019-08-28] MEDS: METOPROLOL SUCCINATE (ER) 25 MG TAB.ER.24H PO SCH (08:16)
[2019-08-28] MEDS: CARBIDOPA-LEVODOPA 25-100 MG 1 EACH TAB PO SCH ×4 (08:16→19:52)
[2019-08-28] MEDS: HYDROcodone/APAP 5-325MG 1 EACH TAB PO PRN (08:17)
[2019-08-28] MEDS: APIXABAN 5 MG TAB PO SCH ×2 (08:17→19:53)
[2019-08-28] MEDS: DONEPEZIL 10 MG TAB PO SCH ×2 (08:17→19:53)
[2019-08-28] MEDS: SODIUM CHLORIDE 0.9% 1,000 ML IV SCH (08:23)
--- NOTE | 2019-08-28 09:01 | ECHOF ---
Referral Reason:afib MEASUREMENTS -------- HEIGHT: 162.6 cm WEIGHT: 81.6 kg BP: IVSd: 0.8 cm (0.6 - 1.1) LVIDd: 4.6 cm (3.9 - 5.3) LVPWd: 0.9 cm (0.6 - 1.1) IVSs: 1.2 cm LVIDs: 3.3 cm LVPWs: 1.5 cm LAESV Index (A-L): 34.48 ml/m Ao Diam: 3.0 cm (2.0 - 3.7) AV Cusp: 1.4 cm (1.5 - 2.6) LA Diam: 3.9 cm (2.7 - 3.8) RAP: 5.00 mmHg RVSP: 33.10 mmHg FINDINGS -------- Atrial fibrillation. This was a technically good study. The left ventricular size is normal. Left ventricular wall thickness is normal. Overall left vent ricular systolic function is mildly impaired with, an EF between 45 - 50 %. Left ventricular fillim g pressure cannot be estimated due to Atrial fibrillation. The right ventricle is normal in size. LA is moderately dilated 34-39 ml/m2 RA appears enlarged. Aortic valve is trileaflet and is mildly thickened. Peak/mean gradient across the Aortic Valve is { AV maxPG} / {AV meanPG}. The mitral valve is normal. The mitral valve leaflets are mildly thickened. Severe mitral regurgi tation is present. The tricuspid valve appears structurally normal. Mild tricuspid regurgitation present. Right vent ricular systolic pressure is normal at < 35 mmHg. There is no pulmonic regurgitation present. The aortic root size is normal. Normal inferior vena cava with normal inspiratory collapse consistent with estimated right atrial pre ssure of 5 mmHg. There is no pericardial effusion. CONCLUSIONS -------- 1. Atrial fibrillation. 2. This was a technically good study. 3. The left ventricular size is normal. 4. Left ventricular wall thickness is normal. 5. Overall left ventricular systolic function is mildly impaired with, an EF between 45 - 50 %. basal inferior wall is akinetic 6. Left ventricular fillimg pressure cannot be estimated due to Atrial fibrillation. 7. The right ventricle is normal in size. 8. LA is moderately dilated 34-39 ml/m2 9. RA appears enlarged. 10. Aortic valve is trileaflet and is mildly thickened. 11. Peak/mean gradient across the Aortic Valve is {AV maxPG} / {AV meanPG}. 12. The mitral valve is normal. 13. The mitral valve leaflets are mildly thickened. 14. Severe mitral regurgitation is present. 15. The tricuspid valve appears structurally normal. 16. Mild tricuspid regurgitation present. 17. Right ventricular systolic pressure is normal at < 35 mmHg. 18. There is no pulmonic regurgitation present. 19. The aortic root size is normal. 20. Normal inferior vena cava with normal inspiratory collapse consistent with estimated right atrial pressure of 5 mmHg. 21. consider JUANIS if clinicallly indicated ADMINISTRATION PHYSICIAN: Merle Norwood RDCS
--- NOTE | 2019-08-28 10:33 | P.PN ---
Subjective Progress Note Date: 08/28/19 Yris Isaac is a 79 yo F with PMH of recently diagnosed atrial fibrillation, parkinson disease, CVA, HTN, HLD who presented to the ED on the recommendation of her PCP after she was found to be in RVR in clinic. Pt reports that about 2 weeks ago she was seen by her field examiner and given a new diagnosis of atrial fibrillation and was started on eliquis and metoprolol. She complains of worsening leg weakness and heaviness, fatigue, palpitations and dyspnea with exertion over the past few days. She reports that she is chronically fatigued and slow from the parkinson's but feels it had worsened. She went to see her primary physician yesterday and was found to have a HR in 130s so was advised to present to the ED. In the ED she was found to be in A fib RVR with stable blood pressure. Labs significant for WBC 13k, Na 128, trop negative x3, CXR no acute process. Pt was started on cardizem and rate is currently controlled at 5 mg per hr. She continues to complain of fatigue, palpitations and leg heaviness. 08/28/2019 evaluated by wound care SKID WORKER, recommendations noted and appreciated. Dressings scheduled to be changed Monday and Monday. Yesterday Cardizem drip weaned off. In the afternoon heart rate increased up into the 150s. Beta rochelle increased. Telemetry atrial fibrillation with heart rate throughout the night in the 110s, this morning up into the 130s. Echo completed yesterday, reporting moderately impaired LV function, EF 45-50%, severe mitral regurgitation. Denies chest pain, palpitations or increased shortness of breath. Complains of left lower back pain, patient attributes to pulling herself up. Sodium 130. Wound culture growing beta hemolytic strep group C. Objective - Vital Signs Vital signs: Vital Signs Temp 98.9 F 08/28/19 08:16 Pulse 131 H 08/28/19 08:16 Resp 16 08/28/19 08:16 BP 102/65 08/28/19 08:16 Pulse Ox 98 08/28/19 08:16 Intake & Output 08/27/19 08/28/19 08/28/19 18:59 06:59 18:59 Intake Total 721.333 240 Output Total 500 Balance 221.333 240 Weight 78 kg Intake: Intake, IV Titration 81.333 Amount Diltiazem 125 mg In 81.333 Sodium Chloride 0.9% 100 ml @ 5 MG/HR 5 mls/hr IV .Q24H [facility] Rx#:[id number] Oral 640 240 Output: Urine 500 Other: Voiding Method Toilet Toilet Toilet # Voids 1 1 # Bowel Movements 0 - Exam General: Sitting up in chair, NAD. Vitals reviewed Eyes: PERRL, EOMI, conjunctiva normal HENT: normocephalic, mucus membranes moist Neck: supple, no JVD Lungs: normal respiratory effort, no wheezes or rales CV: Irregularly irregular, tachycardic,no murmur. Peripheral pulses 1+ Abdomen: soft, nondistended, no organomegaly Lymph: no cervical or axillary LAD Skin: warm and dry. Left gluteus ulceration dressing clean dry and intact. Please refer to wound care team note regarding specifics/ measurements. Neuro: A&Ox3, normal mood and affect. No tremor. Bilateral LE weakness - Labs CBC & Chem 7: 08/26/19 17:20 08/27/19 05:44 Labs: Microbiology - Last 24 Hours (Table) 08/26/19 23:00 Gram Stain - Preliminary Buttock Wound Culture - Preliminary Beta Hemolytic Strep Group C Assessment and Plan Assessment: (1) Parkinson disease Current Visit: Yes Status: Acute Code(s): G20 - PARKINSON'S DISEASE SNOMED Code(s): 81249583 (2) Hyperlipidemia Current Visit: Yes Status: Acute Code(s): E78.5 - HYPERLIPIDEMIA, UNSPECIFIED SNOMED Code(s): 53343974 (3) Atrial fibrillation with RVR Current Visit: Yes Status: Acute Code(s): I48.91 - UNSPECIFIED ATRIAL FIBRILLATION SNOMED Code(s): 847516858659236 (4) Hyponatremia Current Visit: Yes Status: Acute Code(s): E87.1 - HYPO-OSMOLALITY AND HYPONATREMIA SNOMED Code(s): 35721393 (5) CVA, old, cognitive deficits Current Visit: Yes Status: Acute Code(s): I69.319 - UNSP SYMPTOMS AND SIGNS W COGN FNCTNS FOL CEREBRAL INFRC SNOMED Code(s): 010100102 (6) nonpressure chronic ulcer of back with muscle involvement, preliminary wound culture growing beta hemolytic strep group C Plan: Continue on current medication regime ,monitoring and symptomatic treatment. Patient complains of left lower back pain, appears musculoskeletal in nature in addition to complaints of burning in feet, low-dose Neurontin initiated. Wound care as per care team. Infectious disease consulted, regarding wound culture.Uncontrolled atrial fibrillation ,further recommendations from cardiology pending. The impression and plan of care has been dictated as directed. : I performed a history and examination of this patient, discussed the same with the dictator. I agree with the dictator's note ,documented as a scribe. Any additional findings or plans will be noted.
[2019-08-28] MEDS ORDERED: CEPHALEXIN 500 MG CAP PO SCH (10:35)
[2019-08-28] MEDS: GABAPENTIN 100 MG CAP PO SCH ×2 (10:47→19:52)
[2019-08-28] MEDS: PANTOPRAZOLE 40 MG/10 ML VIAL IVP SCH (10:47)
--- NOTE | 2019-08-28 11:29 | P.PN ---
Subjective Progress Note Date: 08/28/19 This is a pleasant 79-year-old female who recently has seen Dr. Dwyer in the office last month, she has a history of hypertension, hyperlipidemia, Parkinson's, prior CVA. On August [address] Dwyer in the office, for new onset of atrial fibrillation. Patient was initiated on anticoagulation as well as metoprolol. She presents to the hospital on this occasion with symptoms of palpitations, severe progressive weakness in her lower extremities, and worsening fatigue. The patient states it's hard to know whether this is from her Parkinson's or the A. fib. Her family encouraged her to come to the emergency room for further evaluation and treatment. EKG on arrival here showed atrial fibrillation with a rapid ventricular response. Chest x-ray did not reveal any active cardiopulmonary disease. Blood pressure 126/60 with a heart rate this morning of 120, 100% on room air. White blood cell count 13.0, hemoglobin 11.1, platelet count 120. Sodium on admission 128, 1:30 this mor emmett, potassium 3.7, BUN 20, creatinine 0.6, magnesium 1.8. Troponins are negative 3. At the time of my examination this morning, patient is resting comfortably in bed, she still feels palpitations in the chest, and states that her legs feeling extremely weak. She is currently on a Cardizem drip at 5 mg per hour. 08/28/2019 Patient seen and examined this morning, sitting up in the chair bedside. She is just ambulated to the bathroom without any difficulty. With ambulation however her heart rate does go up into the 120 to 1:30 range. We will increase her dose of beta rochelle today for more optimal heart rate control. She had an echocardiogram with Doppler study performed which revealed an ejection fraction of 45-50%. Severe mitral regurgitation is present. Because of the severe mitral regurgitation noted on the echo the patient was advised to undergo a JUANIS, this will be performed tomorrow by Dr. Dwyer. Objective - Vital Signs Vital signs: Vital Signs Temp 98.9 F 08/28/19 08:16 Pulse 131 H 08/28/19 08:16 Resp 16 08/28/19 08:16 BP 102/65 08/28/19 08:16 Pulse Ox 98 08/28/19 08:16 Intake & Output 08/27/19 08/28/19 08/28/19 18:59 06:59 18:59 Intake Total 721.333 240 Output Total 500 Balance 221.333 240 Weight 78 kg Intake: Intake, IV Titration 81.333 Amount Diltiazem 125 mg In 81.333 Sodium Chloride 0.9% 100 ml @ 5 MG/HR 5 mls/hr IV .Q24H CARLYLE Rx#:[id number] Oral 640 240 Output: Urine 500 Other: Voiding Method Toilet Toilet Toilet # Voids 1 1 1 # Bowel Movements 0 - Exam PHYSICAL EXAMINATION: GENERAL: 79-year-old female in no acute distress at the time of my examination HEENT: Head is atraumatic, normocephalic. Pupils equal, round. Sclera anicteric. Conjunctiva are clear. Mucous membranes of the mouth are moist. Neck is supple. There is no elevated jugular venous pressure. No carotid bruit is heard. HEART EXAMINATION: Heart S1 and S2 irregularly irregular a systolic murmur is heard CHEST EXAMINATION: Lungs are clear to auscultation and precussion. No chest wall tenderness is noted on palpation or with deep breathing. ABDOMEN: Soft, nontender. Bowel sounds are heard. No organomegaly noted. EXTREMITIES: 2+ peripheral pulses with trace evidence of peripheral edema and no calf tenderness noted. NEUROLOGIC patient is awake, alert and oriented 3 . - Labs CBC & Chem 7: 08/26/19 17:20 08/27/19 05:44 Labs: Microbiology - Last 24 Hours (Table) 08/26/19 23:00 Gram Stain - Preliminary Buttock Wound Culture - Preliminary Beta Hemolytic Strep Group C Assessment and Plan Plan: Assessment and plan #1 atrial fibrillation with rapid ventricular response, chronic persistent #2 recent diagnosis of atrial fibrillation, patient was initiated on Eliquis and Toprol #3 hypertension #4 hyperlipidemia #5 Parkinson's #6 severe mitral regurgitation by echo Plan We will increase the dose of beta rochelle, to optimize heart rate control. Patient will also be scheduled tomorrow to undergo a JUANIS to evaluate the mitral valve. DNP note has been reviewed, I agree with a documented findings and plan of care. Patient was seen and examined.
[2019-08-28] MEDS ORDERED: LIDOCAINE 1% (10MG/ML) FOR IV START INTRADERMA PRN (18:51)
[2019-08-28] MEDS: METOPROLOL TARTRATE 50 MG TAB PO SCH (19:52)
[2019-08-28] MEDS: ATORVASTATIN 40 MG TAB PO SCH (19:52)
[2019-08-28] MEDS: LACTATED RINGERS 1,000 ML IV SCH (19:53)
--- NOTE | 2019-08-28 23:15 | P.CONS ---
History of Present Illness - Reason for Consult Consult date: 08/28/19 left gluteal wound infection Requesting physician: Samuel Calderon - Chief Complaint Palpitations x 1 day - History of Present Illness Patient is a 79-year female with a past medical significant for left frontal abscess after the patient did have surgery for a melanoma resection patient did have a drainage of that abscess subsequently has been treated with antibiotic therapy and local wound care with a wound VAC patient is now presenting to [facility] on August 26, 2019 with chief complaints of fatigue and palpitation apparently the patient was recent diagnosed with A. fib in the outpatient setting which was started on a blood thinner she was noticed to be in A. fib with RVR and subsequently has been in the hospital for management of her A. fib patient did have cultures obtained from her left gluteal wound which are now showing beta-hemolytic group C that prompted this infectious disease consultation since admission to the hospital patient has been afebrile patient noticed to have elevated white count 13,000 admission and has been noted bradycardia since then her creatinine has been normal there is abnormal UA has been negative patient denies having any fever or any chills she did have some mild leaking pain to the left gluteal area intensity 2-3 out of 10 and mostly at the time of dressing changes no significant surrounding swelling redness or any foul-smelling drainage. Review of Systems Positive point has been mentioned in HPI rest of the systems are negative Past Medical History Past Medical History: CVA/TIA, Hyperlipidemia, Hypertension, Memory Impairment, Neurologic Disorder, Osteoarthritis (OA) Additional Past Medical History / Comment(s): CVA October 2017, no residual effects, memory problems, Parkinson's. History of Any Multi-Drug Resistant Organisms: None Reported Past Surgical History: Back Surgery, Tonsillectomy Additional Past Surgical History / Comment(s): Back fusions X2, 2 rods in back. Past Anesthesia/Blood Transfusion Reactions: No Reported Reaction Past Psychological History: No Psychological Hx Reported Smoking Status: Never smoker Past Alcohol Use History: Occasional Additional Past Alcohol Use History / Comment(s): Social smoker when young. Past Drug Use History: None Reported - Past Family History Mother Family Medical History: No Reported History Medications and Allergies Home Medications Medication Instructions Recorded Confirmed Type Ascorbic Acid [Vitamin C] 500 mg PO DAILY 04/16/19 08/26/19 History Aspirin [Adult Low Dose Aspirin EC] 81 mg PO DAILY 04/16/19 08/26/19 History Atorvastatin [Lipitor] 40 mg PO DAILY 04/16/19 08/26/19 History Calcium Carbonate [Calcium] 600 mg PO DAILY 04/16/19 08/26/19 History Carbidopa-Levodopa 25-100 mg 1 tab PO QID 04/16/19 08/26/19 History [Sinemet 25-100] Cholecalciferol [Vitamin D3 (25 1,000 unit PO DAILY 04/16/19 08/26/19 History Mcg = 1000 Iu)] Donepezil HCl [Aricept] 10 mg PO BID 04/16/19 08/26/19 History Apixaban [Eliquis] 5 mg PO BID 08/26/19 08/26/19 History Docusate [Colace] 100 mg PO BID PRN 08/26/19 08/26/19 History Metoprolol Succinate [Toprol XL] 50 mg PO DAILY 08/26/19 08/26/19 History Allergies Allergy/AdvReac Type Severity Reaction Status Date / Time No Known Allergies Allergy Verified 08/26/19 19:02 Physical Exam Vitals: Vital Signs Temp Pulse Resp BP Pulse Ox 08/28/19 12:10 97.8 F 105 H 16 107/69 100 08/28/19 12:00 105 H 16 08/28/19 08:16 98.9 F 131 H 16 102/65 98 08/28/19 08:00 131 H 16 08/28/19 03:40 98.1 F 114 H 16 102/66 98 08/27/19 23:57 98.6 F 109 H 14 109/75 98 08/27/19 21:02 99.6 F 116 H 18 105/70 97 08/27/19 16:00 96 16 08/27/19 15:10 97.7 F 96 16 102/59 98 Intake and Output 08/27/19 08/28/19 08/28/19 22:59 06:59 14:59 Intake Total 120 510 Balance 120 510 Intake: IV 10 Invasive Line 1 10 Oral 120 500 Other: Voiding Method Toilet Toilet Toilet # Voids 1 1 1 Weight 78 kg GENERAL DESCRIPTION: Elderly female up in the chair, no distress. No tachypnea or accessory muscle of respiration use. HEENT: Shows Pallor , no scleral icterus. Oral mucous membrane is dry. NECK: Trachea central, no thyromegaly. LUNGS: Unlabored breathing. Clear to auscultation anteriorly. No wheeze or crackle. HEART: S1, S2, regular rate and rhythm. ABDOMEN: Soft, no tenderness , guarding or rigidity EXTREMITIES: No edema of feet. SKIN: No rash, no masses palpable. Left gluteal area did have a wound with no significant slough tissue surrounding swelling redness or any foul-smelling drainage NEUROLOGICAL: The patient is awake, alert, oriented x3, mood and affect normal. Results CBC & Chem 7: 08/26/19 17:20 08/27/19 05:44 Labs: Microbiology - Last 24 Hours (Table) 08/26/19 23:00 Gram Stain - Preliminary Buttock Wound Culture - Preliminary Beta Hemolytic Strep Group C Assessment and Plan Assessment: 1-patient with a left gluteal wound that is postsurgical after drainage of abscess post melanoma resection in this patient has been admitted to hospital for A. fib with RVR the patient do not have significant inflammatory changes around the wound and did not have any fever though she did have elevated white count on presentation possibly reactive Plan: 1-we will adjust antibiotics to cefazolin 2 g every 8 hours while the patient is in the hospital and transition to Keflex on discharge for short course 2-local wound care with dry Aquacel dressing to be changed daily We will follow on clinical condition and cultures to further adjust medication if needed Thank you for this consultation we will follow the patient along with you
[2019-08-29] MEDS: HYDROcodone/APAP 5-325MG 1 EACH TAB PO PRN (00:05)
[2019-08-29] MEDS ORDERED: FLUCONAZOLE 150 MG TAB PO STA (10:21)
[2019-08-29] MEDS ORDERED: fentaNYL (PF) 50 MCG/ML 2 ML AMP ONE (10:36)
[2019-08-29] MEDS ORDERED: IV FLUID CONTINUATION 1,000 ML IV ONE (10:41)
[2019-08-29] MEDS ORDERED: BENZOCAINE SPRAY 1 CAN MUCOUS MEM ONE (11:00)
[2019-08-29] MEDS ORDERED: MIDAZOLAM 2 MG/2 ML VIAL IV ONE (11:03)
[2019-08-29] MEDS ORDERED: fentaNYL (PF) 50 MCG/ML 2 ML AMP IV ONE (11:03)
[2019-08-29 11:15] LABS: Basophils % (A) 0 %; Eosinophils % (A) 0 %; HCT 35.9 % (34.0-46.0); HGB 11.4 gm/dL (11.4-16.0); Lymphocytes # (A) 0.4 k/uL (1.0-4.8); Lymphocytes % (A) 4 %; MCH 29.7 pg (25.0-35.0); MCHC 31.8 g/dL (31.0-37.0); MCV 93.4 fL (80.0-100.0); Mean Platelet Volume 8.5; Monocytes # (A) 0.3 k/uL (0-1.0); Monocytes % (A) 4 %; Neutrophils # (A) 8.2 k/uL (1.3-7.7); Neutrophils % (A) 91 %; Platelet Count 170 k/uL (150-450); RBC 3.85 m/uL (3.80-5.40)
--- NOTE | 2019-08-29 11:40 | ECHOT ---
TRANSESOPHAGEAL ECHOCARDIOGRAM INDICATION: Mitral regurgitation. After obtaining informed consent, transesophageal echocardiogram was performed in left lateral position using an Omni plane probe. Local and IV sedation were obtained using Xylocaine spray and 2 mg of intravenous Versed. The patient tolerated the procedure well without any obvious immediate complications. FINDINGS: Patient received moderate conscious sedation. Total sedation time was 6 minutes. 1. Mitral valve: Mitral valve appears anatomically normal. There is mitral calcification noted. There is dilatation of the mitral anulus. There is severe central mitral regurgitation noted. 2. Left atrium appears enlarged. 3. Right atrium appears enlarged. Right ventricle has normal size and function. Left ventricle appears mildly enlarged with diffuse global hypokinesis with mild LV dysfunction with an ejection fraction of 50%. Aortic valve appears calcified with mild restriction in leaflet mobility. There is no evidence of aortic regurgitation. Tricuspid valve shows mild tricuspid regurgitation interatrial. 4. Interatrial septum: There is no evidence of [id number]-zzxmu shunt by color-flow Doppler or mlxoj-ke-inwk shunt by agitated saline contrast study. Aorta shows moderate atherosclerotic changes. CONCLUSION: 1. Severe central mitral regurgitation with dilated mitral anulus. 2. Mild left ventricular systolic dysfunction. MMODL / IJN: [id number] /
[2019-08-29] MEDS: DILTIAZEM ORAL 30 MG TAB PO SCH ×3 (12:49→20:27)
[2019-08-29] MEDS: GABAPENTIN 100 MG CAP PO SCH ×2 (12:49→20:27)
[2019-08-29] MEDS: CARBIDOPA-LEVODOPA 25-100 MG 1 EACH TAB PO SCH ×4 (12:49→20:27)
[2019-08-29] MEDS: PANTOPRAZOLE 40 MG/10 ML VIAL IVP SCH (12:49)
[2019-08-29] MEDS: DONEPEZIL 10 MG TAB PO SCH ×2 (12:49→20:27)
[2019-08-29] MEDS: APIXABAN 5 MG TAB PO SCH ×2 (12:49→20:27)
[2019-08-29] MEDS: METOPROLOL TARTRATE 50 MG TAB PO SCH (12:55)
[2019-08-29] MEDS ORDERED: METOPROLOL TARTRATE 25 MG TAB PO STA (12:59)
--- NOTE | 2019-08-29 13:13 | PN ---
PROGRESS NOTE Mrs. Isaac is a 79-year-old female who has a history of atrial fibrillation, was admitted with atrial fibrillation, rapid ventricular response. Her echocardiogram revealed a moderate mitral regurgitation, underwent transesophageal echocardiogram that revealed ejection fraction of 50% with severe central mitral regurgitation. She is doing well this morning. Her breathing is stable. She is denying any chest pain. No dizziness. No palpitation. She continues to be on Eliquis 5 mg twice a day, Lipitor 40 mg daily, Sinemet, Aricept, metoprolol tartrate 75 mg twice a day. PHYSICAL EXAMINATION: Blood pressure 126/60 with the heart rate in the 100 and 110. LUNGS: Clear. HEART: Irregular, irregular. S1, S2. No S3 with systolic murmur, ejection type heard at the apex. No diastolic murmur. ABDOMEN: Soft, nontender. EXTREMITIES: No edema. LAB DATA: Lab data revealed a hemoglobin of 11.4. IMPRESSION: 1. Atrial fibrillation, continued to have episode of rapid ventricular response. 2. Mitral regurgitation with no evidence to suggest an abnormality in the mitral valve apparatus. 3. Left gluteal wound post drainage post melanoma resection. 4. History of Parkinson's. RECOMMENDATION: I will continue on the anticoagulation, the dose of the beta rochelle will be increased and I will add to her regimen Cardizem to optimize her ventricular response and depending on her response further recommendation will be made. The mitral valve regurgitation will be evaluated as an outpatient to see if she is a candidate for further workup. MMODL / YENNIFERN: [id number] /
--- NOTE | 2019-08-29 15:45 | P.PN ---
Subjective Progress Note Date: 08/29/19 Yris Isaac is a 79 yo F with PMH of recently diagnosed atrial fibrillation, parkinson disease, CVA, HTN, HLD who presented to the ED on the recommendation of her PCP after she was found to be in RVR in clinic. Pt reports that about 2 weeks ago she was seen by her generation engineer and given a new diagnosis of atrial fibrillation and was started on eliquis and metoprolol. She complains of worsening leg weakness and heaviness, fatigue, palpitations and dyspnea with exertion over the past few days. She reports that she is chronically fatigued and slow from the parkinson's but feels it had worsened. She went to see her primary physician yesterday and was found to have a HR in 130s so was advised to present to the ED. In the ED she was found to be in A fib RVR with stable blood pressure. Labs significant for WBC 13k, Na 128, trop negative x3, CXR no acute process. Pt was started on cardizem and rate is currently controlled at 5 mg per hr. She continues to complain of fatigue, palpitations and leg heaviness. 08/28/2019 evaluated by wound care WASTE MACHINE OFFBEARER, recommendations noted and appreciated. Dressings scheduled to be changed Monday and Monday. Yesterday Cardizem drip weaned off. In the afternoon heart rate increased up into the 150s. Beta rochelle increased. Telemetry atrial fibrillation with heart rate throughout the night in the 110s, this morning up into the 130s. Echo completed yesterday, reporting moderately impaired LV function, EF 45-50%, severe mitral regurgitation. Denies chest pain, palpitations or increased shortness of breath. Complains of left lower back pain, patient attributes to pulling herself up. Sodium 130. Wound culture growing beta hemolytic strep group C. 08/29/2019 antibiotics as per infectious disease. Completed JUANIS related to moderate to severe mitral regurgitation, reporting severe central mitral regurgitation with dilated mitral annulus, mild left ventricular systolic dysfunction, EF 50%. Anticoagulated on Eliquis. Denies any chest pain, palpitations or shortness of breath. Telemetry atrial fibrillation, better controlled, heart rate in the 110s, on beta rochelle. Complains of constipation. Wears depends at night at home.Reports suprapubic/urethra burning sensation. Objective - Vital Signs Vital signs: Vital Signs Temp 98.6 F 08/29/19 14:15 Pulse 99 08/29/19 14:15 Resp 18 08/29/19 14:15 BP 106/54 08/29/19 14:15 Pulse Ox 99 08/29/19 14:15 Intake & Output 08/28/19 08/29/19 08/29/19 18:59 06:59 18:59 Intake Total 780 340 100 Output Total 1000 Balance 780 -660 100 Weight 77 kg Intake: IV 20 100 Invasive Line 1 20 Intake, IV Titration 340 Amount Lactated Ringers 1,000 ml 240 @ 20 mls/hr IV .Q24H CARLYLE Rx#:[id number] ceFAZolin 2 gm In Sodium 100 Chloride 0.9% 50 ml @ 100 mls/hr IVPB Q8HR CARLYLE Rx# :[id number] Oral 760 Output: Urine 1000 Other: Voiding Method Toilet Toilet # Voids 1 1 2 - Exam General: Sitting up in chair, NAD. Vitals reviewed Eyes: PERRL, EOMI, conjunctiva normal HENT: normocephalic, mucus membranes moist Neck: supple, no JVD Lungs: normal respiratory effort, no wheezes or rales CV: Irregularly irregular, mild tachycardia, systolic murmur. Peripheral pulses 1+ Abdomen: soft, nondistended, no organomegaly Lymph: no cervical or axillary LAD Skin: warm and dry. Left gluteus ulceration dressing clean dry and intact. Please refer to wound care team note regarding specifics/ measurements. Neuro: A&Ox3, normal mood and affect. No tremor. Bilateral LE weakness - Labs CBC & Chem 7: 08/29/19 10:22 08/27/19 05:44 Labs: Abnormal Lab Results - Last 24 Hours (Table) 08/29/19 Range/Units 10:22 Neutrophils # 8.2 H (1.3-7.7) k/uL Lymphocytes # 0.4 L (1.0-4.8) k/uL Assessment and Plan Assessment: (1) Parkinson disease Current Visit: Yes Status: Acute Code(s): G20 - PARKINSON'S DISEASE SNOMED Code(s): 99652040 (2) Hyperlipidemia Current Visit: Yes Status: Acute Code(s): E78.5 - HYPERLIPIDEMIA, UNSPECIFIED SNOMED Code(s): 53878377 (3) Atrial fibrillation with RVR Current Visit: Yes Status: Acute Code(s): I48.91 - UNSPECIFIED ATRIAL FIBRILLATION SNOMED Code(s): 302412164158508 (4) Hyponatremia Current Visit: Yes Status: Acute Code(s): E87.1 - HYPO-OSMOLALITY AND HYPONATREMIA SNOMED Code(s): 60249428 (5) CVA, old, cognitive deficits Current Visit: Yes Status: Acute Code(s): I69.319 - UNSP SYMPTOMS AND SIGNS W COGN FNCTNS FOL CEREBRAL INFRC SNOMED Code(s): 698499800 (6) 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 MiraLAStephanie Senokot admitted for complaints of constipation. Diflucan ordered. Beta rochelle increased in addition to Cardizem added to med regimen as per cardiology. Antibiotics as per infectious disease Wound care as per care team. The impression and plan of care has been dictated as directed. : I performed a history and examination of this patient, discussed the same with the dictator. I agree with the dictator's note ,documented as a scribe. Any additional findings or plans will be noted.
[2019-08-29] MEDS: POLYETHYLENE GLYCOL 3350 17 GM POWD.PACK PO SCH (17:01)
[2019-08-29] MEDS: METOPROLOL TARTRATE 25 MG TAB PO SCH (20:27)
[2019-08-29] MEDS: ATORVASTATIN 40 MG TAB PO SCH (20:27)
[2019-08-29] MEDS: SENNOSIDES-DOCUSATE SODIUM 1 EACH TAB PO SCH (20:27)
--- NOTE | 2019-08-29 23:31 | PN ---
PROGRESS NOTE DATE OF SERVICE: 08/29/2019 REASON FOR FOLLOWUP: Left gluteal wound with secondary cellulitis. INTERVAL HISTORY: The patient is currently afebrile. She has been breathing comfortably. Denies having any chest pain or cough or any worsening pain in the left gluteal area. No nausea, no vomiting. No diarrhea. PHYSICAL EXAMINATION: Blood pressure 112/61 with a pulse of 109, temperature 98.2. She is 98% on room air. General description is an elderly female lying in bed in no distress. RESPIRATORY SYSTEM: Unlabored breathing. Clear to auscultation anteriorly. HEART: S1, S2. Regular rate and rhythm. ABDOMEN: Soft. No tenderness. Left gluteal wound is significantly deep, but no purulent drainage. No surrounding redness. LABS: Hemoglobin 11.4, white count 9.0, BUN of 20, creatinine 0.67. DIAGNOSTIC IMPRESSION AND PLAN: Patient with a left gluteal chronic nonhealing wound with a previous history of abscess post melanoma resection. Now the family is complaining that the wound has gotten significantly deeper compared to her previous wound care visit. Culture with beta- hemolytic group C strep. We will obtain a CT of the pelvic area to make sure there is no evidence of any deep collection that may need to be drained or any further extensive antibiotic therapy. She is currently covered with Cefazolin; to continue and monitor clinical course. This family had multiple questions; those were answered. Time spent was 25 minutes. TERRY / JEFF: [id number] /
[2019-08-30] MEDS: LACTATED RINGERS 1,000 ML IV SCH ×2 (03:48→20:26)
[2019-08-30] MEDS: PANTOPRAZOLE 40 MG TABLET PO SCH (06:41)
[2019-08-30 07:55] LABS: Basophils % (A) 0 %; Eosinophils # (A) 0.1 k/uL (0-0.7); Eosinophils % (A) 1 %; HCT 29.8 % (34.0-46.0); Lymphocytes # (A) 0.4 k/uL (1.0-4.8); Lymphocytes % (A) 5 %; MCH 30.8 pg (25.0-35.0); MCHC 33.5 g/dL (31.0-37.0); Mean Platelet Volume 8.8; Monocytes # (A) 0.2 k/uL (0-1.0); Monocytes % (A) 3 %; Neutrophils # (A) 7.5 k/uL (1.3-7.7); Neutrophils % (A) 91 %; Platelet Count 149 k/uL (150-450); RBC 3.24 m/uL (3.80-5.40); WBC 8.3 k/uL (3.8-10.6)
[2019-08-30] MEDS: METOPROLOL TARTRATE 25 MG TAB PO SCH ×2 (08:20→20:24)
[2019-08-30] MEDS: DONEPEZIL 10 MG TAB PO SCH ×2 (08:20→20:23)
[2019-08-30] MEDS: DILTIAZEM ORAL 30 MG TAB PO SCH ×3 (08:21→20:23)
[2019-08-30] MEDS: CARBIDOPA-LEVODOPA 25-100 MG 1 EACH TAB PO SCH ×4 (08:21→20:22)
[2019-08-30] MEDS: GABAPENTIN 100 MG CAP PO SCH ×2 (08:21→20:23)
[2019-08-30] MEDS: APIXABAN 5 MG TAB PO SCH ×2 (08:21→20:22)
[2019-08-30] MEDS: POLYETHYLENE GLYCOL 3350 17 GM POWD.PACK PO SCH (08:22)
[2019-08-30 09:03] LABS: Erythrocyte Sedimentation Rate 79 mm/hr (0-20)
--- NOTE | 2019-08-30 12:51 | CT ---
EXAMINATION TYPE: CT pelvis wo con DATE OF EXAM: 08/30/2019 COMPARISON: None HISTORY: Left gluteal wound, possible abscess. CT DLP: 535.3 mGycm Automated exposure control for dose reduction was used. FINDINGS: There is mild diffuse increased soft tissue density within the subcutaneous tissues. In the posterior medial region there is some focal increased density with some central low density. This extends leroy cent to the distal left sacrum. Suspicious cortical erosion is not identified to suggest osteomyeliti s radiographically. No definite abscess formation is evident. IMPRESSION: PHLEGMON OR DECOMPRESSED ABSCESS WITH MINIMAL AIR IN LEFT GLUTEAL REGION. THIS EXTENDS ADJACENT TO TH E LEFT PORTION OF THE SACRUM. NO SUSPICIOUS EROSION TO SUGGEST OSTEOMYELITIS IS EVIDENT.
--- NOTE | 2019-08-30 13:03 | PN ---
PROGRESS NOTE Mrs. Isaac is a 79-year-old female with known history of atrial fibrillation, history of Parkinson's disease, who presented with atrial fibrillation, rapid ventricular response. Her echocardiogram revealed moderate mitral regurgitation. She subsequently underwent transesophageal echocardiogram that showed severe mitral regurgitation with an ejection fraction of 50%. She is feeling better today. Her energy is better. Her breathing is better. She denies any dizziness or palpitation. She denies any nausea. She continues to be on Eliquis 5 mg twice a day, Sinemet, Cardizem is 30 mg 3 times a day, metoprolol tartrate 75 mg twice a day. PHYSICAL EXAMINATION: Blood pressure 115/60 with the heart rate in the 70s. LUNGS: Clear. HEART: Irregular, irregular, S1, S2. No S3 with a holosystolic murmur at the apex radiating to the axilla. No diastolic murmur. No rub. ABDOMEN: Soft, nontender. EXTREMITIES: No edema. LAB DATA: Lab data revealed hemoglobin of 10. IMPRESSION: 1. Atrial fibrillation with controlled ventricular response. 2. Mitral regurgitation, severe. 3. History of Parkinson's. 4. Left gluteal wound post drainage. RECOMMENDATION: From the cardiac standpoint, she should be able to be discharged home soon and follow up as an outpatient with Dr. Dwyer as scheduled for further evaluation and treatment. MMODL / IJN: [id number] /
--- NOTE | 2019-08-30 15:57 | P.PN ---
Subjective Progress Note Date: 08/30/19 Yris Isaac is a 79 yo F with PMH of recently diagnosed atrial fibrillation, parkinson disease, CVA, HTN, HLD who presented to the ED on the recommendation of her PCP after she was found to be in RVR in clinic. Pt reports that about 2 weeks ago she was seen by her casing man and given a new diagnosis of atrial fibrillation and was started on eliquis and metoprolol. She complains of worsening leg weakness and heaviness, fatigue, palpitations and dyspnea with exertion over the past few days. She reports that she is chronically fatigued and slow from the parkinson's but feels it had worsened. She went to see her primary physician yesterday and was found to have a HR in 130s so was advised to present to the ED. In the ED she was found to be in A fib RVR with stable blood pressure. Labs significant for WBC 13k, Na 128, trop negative x3, CXR no acute process. Pt was started on cardizem and rate is currently controlled at 5 mg per hr. She continues to complain of fatigue, palpitations and leg heaviness. 08/28/2019 evaluated by wound care QUILLER RUNNER, recommendations noted and appreciated. Dressings scheduled to be changed Monday and Monday. Yesterday Cardizem drip weaned off. In the afternoon heart rate increased up into the 150s. Beta rochelle increased. Telemetry atrial fibrillation with heart rate throughout the night in the 110s, this morning up into the 130s. Echo completed yesterday, reporting moderately impaired LV function, EF 45-50%, severe mitral regurgitation. Denies chest pain, palpitations or increased shortness of breath. Complains of left lower back pain, patient attributes to pulling herself up. Sodium 130. Wound culture growing beta hemolytic strep group C. 08/29/2019 antibiotics as per infectious disease. Completed JUANIS reported moderate to severe mitral regurgitation with dilated mitral annulus, mild left ventricular systolic dysfunction, EF 50%. Anticoagulated on Eliquis. Denies any chest pain, palpitations or shortness of breath. Telemetry atrial fibrillation, better controlled, heart rate in the 110s, on beta rochelle. Complains of con stipation. Wears depends at night at home.Reports suprapubic/urethra burning sensation. 08/30/2019 Cardizem added to med regime in addition to beta rochelle. Telemetry reporting controlled atrial fib with heart rate in the 70s to 90s. Denies chest pain, palpitations or shortness of breath. Denies lightheadedness, dizziness or focal deficits. Wound culture Beta Hemolytic Strep Group C.Maintained on IV antibiotics of cefazolin as per infectious disease. Pelvis CT pending. Extremely weak, evaluated by physical therapy and patient/daughter has been advised medically, patient should go to subacute rehab. Daughter currently declining. Objective - Vital Signs Vital signs: Vital Signs Temp 98.3 F 08/30/19 11:40 Pulse 71 08/30/19 11:40 Resp 18 08/30/19 11:40 BP 115/65 08/30/19 11:40 Pulse Ox 98 08/30/19 11:40 Intake & Output 08/29/19 08/30/19 08/30/19 18:59 06:59 18:59 Intake Total 336 10 240 Balance 336 10 240 Weight 76.9 kg Intake: IV 100 Oral 236 10 240 Other: Voiding Method Bedpan Bedpan Bedpan # Voids 4 - Exam General: Sitting up in bed, NAD. Vitals reviewed Eyes: PERRL, EOMI, conjunctiva normal HENT: normocephalic, mucus membranes moist Neck: supple, no JVD Lungs: normal respiratory effort, no wheezes or rales CV: Irregularly irregular, systolic murmur. Peripheral pulses 1+ Abdomen: soft, nondistended, no organomegaly, positive bowel sounds Skin: warm and dry. Left gluteus ulceration dressing clean dry and intact. Please refer to wound care team note regarding specifics/ measurements. Neuro: A&Ox3, normal mood and affect. No tremor. Bilateral LE weakness Microbiology 08/26/19 23:00 Buttock Gram Stain - Final 08/26/19 23:00 Buttock Wound Culture - Final Beta Hemolytic Strep Group C - Labs CBC & Chem 7: 08/30/19 07:25 08/27/19 05:44 Labs: Abnormal Lab Results - Last 24 Hours (Table) 08/30/19 08/30/19 Range/Units 07:25 07:25 RBC 3.24 L (3.80-5.40) m/uL Hgb 10.0 L (11.4-16.0) gm/dL Hct 29.8 L (34.0-46.0) % Plt Count 149 L (150-450) k/uL Lymphocytes # 0.4 L (1.0-4.8) k/uL ESR 79 H (0-20) mm/hr C-Reactive Protein 248.7 H (<10.0) mg/L Microbiology - Last 24 Hours (Table) 08/26/19 23:00 Gram Stain - Final Buttock Wound Culture - Final Beta Hemolytic Strep Group C Assessment and Plan Assessment: (1) Parkinson disease Current Visit: Yes Status: Acute Code(s): G20 - PARKINSON'S DISEASE SNOMED Code(s): 67713716 (2) Hyperlipidemia Current Visit: Yes Status: Acute Code(s): E78.5 - HYPERLIPIDEMIA, UNSPECIFIED SNOMED Code(s): 95931996 (3) Atrial fibrillation with RVR Current Visit: Yes Status: Acute Code(s): I48.91 - UNSPECIFIED ATRIAL FIBRILLATION SNOMED Code(s): 940765843101592 (4) Hyponatremia Current Visit: Yes Status: Acute Code(s): E87.1 - HYPO-OSMOLALITY AND HYPONATREMIA SNOMED Code(s): 59996576 (5) CVA, old, cognitive deficits Current Visit: Yes Status: Acute Code(s): I69.319 - UNSP SYMPTOMS AND SIGNS W COGN FNCTNS FOL CEREBRAL INFRC SNOMED Code(s): 730285737 (6) 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 Continue on MiraLAX. Pelvis CT pending. Final wound care/DC antibiotic, possible mini versus PICC line as per ID, pending. ID to be called with results of CT as soon as available. Cleared by cardiology for discharge. Potential discharge home today, pending clearance/recommendations from infectious disease. The impression and plan of care has been dictated as directed. : I performed a history and examination of this patient, discussed the same with the dictator. I agree with the dictator's note ,documented as a scribe. Any additional findings or plans will be noted.
--- NOTE | 2019-08-30 18:09 | PN ---
PROGRESS NOTE DATE OF SERVICE: 08/30/2019. REASON FOR FOLLOWUP: Left gluteal wound with secondary cellulitis. INTERVAL HISTORY: The patient is currently afebrile. The patient has been breathing comfortably. The patient denies having any chest pain or shortness of breath or cough. No nausea, no vomiting. No abdominal pain or any worsening pain to the left gluteal area. PHYSICAL EXAMINATION: Blood pressure is 115/65 with a pulse of 71, temperature 98.3. She is 98% on room air. General description is an elderly female up in the chair in no distress. RESPIRATORY SYSTEM: Unlabored breathing. Clear to auscultation anteriorly. HEART: S1, S2. Regular rate and rhythm. ABDOMEN: Soft. No tenderness. EXTREMITIES: No edema of the feet. LABS/IMAGING: Hemoglobin is 10, white count 8.3. Sedimentation rate was 79. CRP 248. CT of the pelvis has been reviewed with Radiology. It shows significant inflammatory changes almost extending down to the sacral area with concern for possible sacral osteomyelitis. DIAGNOSTIC IMPRESSION AND PLAN: Patient with a nonhealing wound to the left gluteal area which apparently has been getting worse, per the patient's daughter. Culture positive for beta-hemolytic group C strep. CT has been reviewed with the radiologist and shows extensive changes all the way extending down to the sacral bone with concern for possible sacral osteomyelitis. She will need a midline/PICC line and continue with IV cefazolin 2 grams q.8 hours for 4 to 6 weeks. This has been communicated to the nurse working on discharge. Continue supportive care. MMODL / IJN: [id number] /
[2019-08-30] MEDS: SENNOSIDES-DOCUSATE SODIUM 1 EACH TAB PO SCH (20:23)
[2019-08-30] MEDS: HYDROcodone/APAP 5-325MG 1 EACH TAB PO PRN (20:23)
[2019-08-30] MEDS: ATORVASTATIN 40 MG TAB PO SCH (20:23)
[2019-08-31] MEDS: PANTOPRAZOLE 40 MG TABLET PO SCH (06:25)
[2019-08-31 06:41] LABS: Basophils % (A) 0 %; Eosinophils # (A) 0.1 k/uL (0-0.7); Eosinophils % (A) 1 %; HCT 28.8 % (34.0-46.0); HGB 9.4 gm/dL (11.4-16.0); Lymphocytes # (A) 0.4 k/uL (1.0-4.8); Lymphocytes % (A) 5 %; MCH 29.8 pg (25.0-35.0); MCHC 32.5 g/dL (31.0-37.0); MCV 91.9 fL (80.0-100.0); Mean Platelet Volume 8.7; Monocytes # (A) 0.3 k/uL (0-1.0); Monocytes % (A) 4 %; Neutrophils # (A) 8.1 k/uL (1.3-7.7); Neutrophils % (A) 90 %; Platelet Count 170 k/uL (150-450); RBC 3.13 m/uL (3.80-5.40); WBC 9.1 k/uL (3.8-10.6)
[2019-08-31 07:00] LABS: African American GFR (CKD) >90 (>60 ml/min/1.73 sqM); Anion Gap 7 mmol/L; Blood Urea Nitrogen 17 mg/dL (7-17); Carbon Dioxide 24 mmol/L (22-30); Chloride 99 mmol/L (98-107); Glucose 133 mg/dL (74-99); Non-African American GFR(CKD) 83 (>60 ml/min/1.73 sqM); Potassium 4.1 mmol/L (3.5-5.1); Sodium 130 mmol/L (137-145)
[2019-08-31] MEDS: CARBIDOPA-LEVODOPA 25-100 MG 1 EACH TAB PO SCH ×4 (08:20→20:20)
[2019-08-31] MEDS: METOPROLOL TARTRATE 25 MG TAB PO SCH ×2 (08:20→20:20)
[2019-08-31] MEDS: DONEPEZIL 10 MG TAB PO SCH ×2 (08:20→20:21)
[2019-08-31] MEDS: DILTIAZEM ORAL 30 MG TAB PO SCH ×3 (08:20→20:20)
[2019-08-31] MEDS: GABAPENTIN 100 MG CAP PO SCH ×2 (08:20→20:20)
[2019-08-31] MEDS: APIXABAN 5 MG TAB PO SCH ×2 (08:20→20:21)
[2019-08-31] MEDS: POLYETHYLENE GLYCOL 3350 17 GM POWD.PACK PO SCH (08:21)
--- NOTE | 2019-08-31 12:27 | P.PN ---
Subjective Progress Note Date: 08/31/19 This is a pleasant 79-year-old female patient with history of atrial fibrillation, Parkinson's disease. She presented with atrial fibrillation with rapid ventricular response. She no echocardiogram which revealed moderate MR and subsequently underwent JUANIS which showed severe MR with an ejection fraction of 50%. She is awaiting PICC line placement for IV antibiotics secondary to an infected gluteal wound. Overall today she's feeling fairly well. Her heart rate are well controlled. She is anticoagulated on Eliquis. She is currently on Cardizem 30 mg by mouth 3 times a day and metoprolol titrate 25 mg by mouth twice a day. Upon examination the patient is resting comfortably in chair. She denies any dizziness, lightheadedness, chest discomfort or palpitations. She has no shortness of breath. Family at bedside verbalizes significant concerns regarding delay in discharge due to needing a PICC line placement. Objective - Vital Signs Vital signs: Vital Signs Temp 98.2 F 08/31/19 08:00 Pulse 95 08/31/19 08:00 Resp 17 08/31/19 08:00 BP 148/70 08/31/19 08:00 Pulse Ox 98 08/31/19 08:00 Intake & Output 08/30/19 08/31/19 08/31/19 18:59 06:59 18:59 Intake Total 476 300 240 Balance 476 300 240 Weight 76.4 kg Intake: Intake, IV Titration 50 Amount ceFAZolin 2 gm In Sodium 50 Chloride 0.9% 50 ml @ 100 mls/hr IVPB Q8HR [facility] Rx# :[id number] Oral 476 250 240 Other: Voiding Method Bedpan Bedpan # Voids 3 1 2 - Exam PHYSICAL EXAMINATION: HEENT: Head is atraumatic, normocephalic. Pupils equal, round. Neck is supple. There is no elevated jugular venous pressure. HEART EXAMINATION: Heart sounds irregular irregular, S1 and S2 with a holosystolic murmur. CHEST EXAMINATION: Lungs are clear to auscultation and precussion. No chest wall tenderness is noted on palpation or with deep breathing. ABDOMEN: Soft, nontender. Bowel sounds are heard. No organomegaly noted. EXTREMITIES: 2+ peripheral pulses with no evidence of peripheral edema and no calf tenderness noted. NEUROLOGIC patient is awake, alert and oriented x3. . - Labs CBC & Chem 7: 08/31/19 06:13 08/31/19 06:13 Labs: Abnormal Lab Results - Last 24 Hours (Table) 08/31/19 08/31/19 Range/Units 06:13 06:13 RBC 3.13 L (3.80-5.40) m/uL Hgb 9.4 L (11.4-16.0) gm/dL Hct 28.8 L (34.0-46.0) % Neutrophils # 8.1 H (1.3-7.7) k/uL Lymphocytes # 0.4 L (1.0-4.8) k/uL Sodium 130 L (137-145) mmol/L Glucose 133 H (74-99) mg/dL Calcium 8.0 L (8.4-10.2) mg/dL Microbiology - Last 24 Hours (Table) 08/26/19 23:00 Gram Stain - Final Buttock Wound Culture - Final Beta Hemolytic Strep Group C Assessment and Plan Assessment: #1 persistent atrial fibrillation with controlled ventricular response #2 severe mitral regurgitation #3 history of Parkinson's #4 left gluteal wound Plan: From cardiology perspective, medications reviewed and we will continue the same. I discussed in detail with the patient and family regarding medical management of mitral regurgitation as well as atrial fibrillation at this point and importance of anticoagulation for stroke prevention. At this time we will fol low the patient on an as-needed basis. Please do not hesitate to contact us with questions. She will follow-up in the office following discharge with Dr. Dwyer. WRAPPER COUNTER note has been reviewed, I agree with a documented findings and plan of care. Patient was seen and examined.
[2019-08-31] MEDS: HYDROcodone/APAP 5-325MG 1 EACH TAB PO PRN (12:46)
[2019-08-31] MEDS ORDERED: DOCUSATE 100 MG CAP PO PRN (14:11)
--- NOTE | 2019-08-31 17:01 | PN ---
PROGRESS NOTE DATE OF SERVICE: 08/31/2019 I am covering for Dr. Calderon. HISTORY OF PRESENT ILLNESS: This 79-year-old woman with a past medical history of multiple medical problems, admitted with fatigue and palpitations. The patient was also found to have atrial fibrillation. The patient also had significant mitral regurgitation which is documented by JUANIS. Patient also had on the left side and CT scan showed deep involvement and possible sacral osteomyelitis. Dr. Hale is following the patient and recommended a PICC line and possible ECF rehab also at this time, multiple consultants are following the patient closely. The wound culture showed beta-hemolytic strep group C. PAST MEDICAL HISTORY: Reviewed. REVIEW OF SYSTEMS: Cardiovascular is no angina or palpitations. RESPIRATIONS: As mentioned earlier. GI no nausea. no dysuria. Nervous systems: No numbness or weakness. CURRENT MEDICATIONS: Reviewed and include: 1. [place] 5 mg q.6h p.r.n. 2. Eliquis 5 mg p.o. b.i.d. 3. Lipitor 40 mg q.h.s. 4. Sinemet 25/100 1 p.o. q.i.d. 5. Cefazolin 2 g IV q.8h. 6. Cardizem 30 mg p.o. t.i.d. 7. Aricept 10 mg p.o. b.i.d. 8. Neurontin 100 mg p.o. b.i.d. 9. Lactated Ringer's. 10.Lopressor 75 mg p.o. b.i.d. 11.Narcan. 12.Protonix. 13.MiraLAX. 14.Senokot-S. PHYSICAL EXAM: Patient is alert, oriented x3. Pulse 75. Blood pressure 113/75, respiration 18, temperature 97.9, pulse ox 98% on room air. HEENT: Conjunctivae normal. Oral mucosa moist. NECK is no jugular venous distention. No carotid bruit. No lymph node enlargement. Cardiovascular: S1, S2 muffled. RESPIRATORY: Breath sounds diminished in the bases. A few scattered rhonchi and crackles. ABDOMEN: Soft, nontender. No mass palpable. Legs no edema. No swelling. NERVOUS SYSTEM: Higher functions as mentioned earlier. Moves all 4 limbs, no focal motor or sensory deficits. LYMPHATICS: No lymph nodes palpable in the neck, axillae or groin. SKIN: No ulcer, no rash and no bleeding. JOINTS: No active deforming arthropathy. LABORATORY DATA: CRP 284.7. ASSESSMENT: 1. Left gluteal wound and possible osteomyelitis with beta-hemolytic Streptococcal group C. 2. Status post PICC line. 3. Atrial fibrillation. 4. Severe mitral regurgitation. 5. Parkinson's. 6. Hyponatremia. 7. Elevated CRP. 8. Anemia, normocytic anemia of chronic disease. 9. History of cerebrovascular accident, transient ischemic attack. 10.Hypertension. 11.Hyperlipidemia. 12.History of memory impairment. 13.History of degenerative joint disease. 14.History of back surgery/degenerative joint disease. 15.NO CODE/NO CPR/NO VENT. RECOMMENDATIONS AND DISCUSSION: In this 79-year-old woman who presented with multiple complex medical issues, we will monitor the patient closely, continue the current management, symptomatic treatment, and continue the antibiotics. Currently the patient is on IV cefazolin. Dr. Hale has recommended a PICC line and I would also recommend PT/OT evaluation. Closely work with Social Work, Case Management team for possible ECF rehab. Otherwise, DVT prophylaxis and repeat labs. Guarded prognosis because of multiple complex medical issues. Further recommendations to follow. MMODL / IJN: [id number] / MTDLaura
[2019-08-31] MEDS: LACTATED RINGERS 1,000 ML IV SCH (17:38)
[2019-08-31] MEDS: ATORVASTATIN 40 MG TAB PO SCH (20:20)
[2019-08-31] MEDS: SENNOSIDES-DOCUSATE SODIUM 1 EACH TAB PO SCH (20:20)
[2019-09-01 06:26] LABS: Basophils % (A) 0 %; Eosinophils # (A) 0.1 k/uL (0-0.7); Eosinophils % (A) 2 %; HCT 31.9 % (34.0-46.0); HGB 10.2 gm/dL (11.4-16.0); Lymphocytes # (A) 0.4 k/uL (1.0-4.8); Lymphocytes % (A) 5 %; MCH 29.9 pg (25.0-35.0); MCHC 32.1 g/dL (31.0-37.0); MCV 93.1 fL (80.0-100.0); Mean Platelet Volume 8.5; Monocytes # (A) 0.2 k/uL (0-1.0); Monocytes % (A) 3 %; Neutrophils # (A) 7.6 k/uL (1.3-7.7); Neutrophils % (A) 90 %; Platelet Count 191 k/uL (150-450); RBC 3.42 m/uL (3.80-5.40); RDW 14.9 % (11.5-15.5); WBC 8.5 k/uL (3.8-10.6)
[2019-09-01 06:44] LABS: Calcium 8.3 mg/dL (8.4-10.2); Potassium 4.2 mmol/L (3.5-5.1)
[2019-09-01] MEDS: PANTOPRAZOLE 40 MG TABLET PO SCH (06:51)
--- NOTE | 2019-09-01 08:42 | PN ---
PROGRESS NOTE DATE OF SERVICE: 08/31/2019 REASON FOR FOLLOWUP: Left gluteal wound infection and a question of osteomyelitis. INTERVAL HISTORY: The patient is currently afebrile. The patient is breathing comfortably. Denies having any chest pain or shortness of breath or cough. No abdominal pain. No pain to the left gluteal area. PHYSICAL EXAMINATION: Blood pressure 101/55 with a pulse of 67. Temperature 97.9. She is 100% on room air. General description is an elderly female lying in bed in no distress. Respiratory system: Unlabored breathing. Clear to auscultation anteriorly. Heart S1, S2. Regular rate and rhythm. Abdomen soft, no tenderness. The left foot wound is currently dressed up. LABS: Hemoglobin 9.4, white count 9.1. BUN of 17, creatinine 0.71. DIAGNOSTIC IMPRESSION AND PLAN: Patient with left gluteal wound which apparently showed worsening. Local cultures positive for group C strep. Did have elevated sed rate and CRP and a CT has been suspicious for possible osteo, but no drainable abscess. She is currently waiting for the PICC line placement and outpatient antibiotic arrangement, will be cefazolin 2 g q8h for at least 4-6 weeks or transition to IV Rocephin 2 g daily once a day depending upon the coverage. Continue supportive care. MMODL / IJN: [id number] /
[2019-09-01] MEDS: CALCIUM CARBONATE 500 MG CHEWABLE PO SCH (09:00)
[2019-09-01] MEDS: POLYETHYLENE GLYCOL 3350 17 GM POWD.PACK PO SCH (09:00)
[2019-09-01] MEDS: DONEPEZIL 10 MG TAB PO SCH ×2 (09:01→20:29)
[2019-09-01] MEDS: ASPIRIN 81 MG PO SCH (09:01)
[2019-09-01] MEDS: DILTIAZEM ORAL 30 MG TAB PO SCH ×3 (09:01→20:29)
[2019-09-01] MEDS: APIXABAN 5 MG TAB PO SCH ×2 (09:01→20:27)
[2019-09-01] MEDS: METOPROLOL TARTRATE 25 MG TAB PO SCH ×2 (09:01→20:29)
[2019-09-01] MEDS: CARBIDOPA-LEVODOPA 25-100 MG 1 EACH TAB PO SCH ×4 (09:01→20:29)
[2019-09-01] MEDS: GABAPENTIN 100 MG CAP PO SCH ×2 (09:01→20:29)
[2019-09-01] MEDS: CHOLECALCIFEROL 1,000 UNIT TAB PO SCH (09:01)
[2019-09-01] MEDS: ASCORBIC ACID 500 MG TAB PO SCH (09:01)
[2019-09-01] MEDS: LACTATED RINGERS 1,000 ML IV SCH (15:05)
[2019-09-01] MEDS: SENNOSIDES-DOCUSATE SODIUM 1 EACH TAB PO SCH (20:29)
[2019-09-01] MEDS: ATORVASTATIN 40 MG TAB PO SCH (20:29)
--- NOTE | 2019-09-01 22:22 | PN ---
PROGRESS NOTE DATE OF SERVICE: 09/01/2019 I am covering for Dr. Calderon. This 79-year-old woman who was admitted with left gluteal wound and possible osteomyelitis, beta-hemolytic strep group C. The patient is planned to have a PICC line also at this time. The patient is being closely monitored. The pelvis CAT scan noted. PAST MEDICAL HISTORY: Reviewed. REVIEW OF SYSTEMS: Cardiovascular system: No angina. Respiratory: As mentioned earlier. GI: As mentioned earlier. : No dysuria or retention. Nervous system: No numbness or weakness. CURRENT MEDICATIONS: 1. [place] 5 mg q.6h p.r.n. 2. Eliquis. 3. Vitamin C. 4. Aspirin. 5. Lipitor. 6. Tums. 7. Sinemet. 8. Cefazolin. 9. Cardizem. 10.Aricept. 11.Neurontin. 12.Narcan. 13.Protonix. 14.MiraLAX. 15.Senokot-S. Doses are reviewed. PHYSICAL EXAMINATION: Alert and oriented x3. Pulse 85, blood pressure 120/60, respirations 16, temperature 97 degrees, pulse ox 100 percent on room air. HEENT: Conjunctivae normal. Oral mucosa moist. NECK: No jugular venous distention. No lymph node enlargement. CARDIOVASCULAR: S1, S2. RESPIRATORY: Diminished breath sounds at the bases. Scattered rhonchi and crackles. ABDOMEN: Soft, nontender. LEGS: No edema, no swelling. NERVOUS SYSTEM: No focal deficits. LABS: WBC 8.2, hemoglobin 10.2, sodium 129, and calcium is 8.3. C-reactive protein is 247. ASSESSMENT: 1. Left gluteal wound with possible osteomyelitis with beta hemolytic Streptococcus group G. 2. For PICC line. 3. Atrial fibrillation. 4. Severe mitral regurgitation. 5. Parkinson's. 6. Hyponatremia. 7. Elevated CRP. 8. Anemia, normocytic anemia of chronic disease. 9. History of cerebrovascular accident, transient ischemic attack. 10.Hypertension. 11.Hyperlipidemia. 12.History of memory impairment. 13.History of degenerative joint disease. 14.History of back surgery. 15.NO CODE, NO CPR, NO VENT. RECOMMENDATIONS AND DISCUSSION: Recommend to continue current management. Continue with IV cefazolin. Otherwise, possible PICC line and PT/OT evaluation. Insurance clearance by the case management team. Otherwise, repeat labs will be ordered. Patient has hyponatremia. We will continue to monitor. Further recommendations to follow. MMODL / IJN: [id number] /
[2019-09-01] MEDS: HYDROcodone/APAP 5-325MG 1 EACH TAB PO PRN (22:32)
[2019-09-01 23:13] VITALS: RESP 18
[2019-09-02] MEDS: PANTOPRAZOLE 40 MG TABLET PO SCH (05:19)
--- NOTE | 2019-09-02 06:19 | PN ---
PROGRESS NOTE DATE OF SERVICE: 09/01/2019 REASON FOR FOLLOWUP: Left gluteal infected wound. INTERVAL HISTORY: The patient is currently afebrile. She has been breathing comfortably. Denies having any chest pain. No shortness of breath or cough. No abdominal pain or pain to the left gluteal wound area. PHYSICAL EXAMINATION: Blood pressure 139/78 with a pulse of 99, temperature 98. She is 97% on room air. General description is an elderly female lying in bed in no distress. RESPIRATORY SYSTEM: Unlabored breathing, clear to auscultation anteriorly. HEART: S1, S2. Regular rate and rhythm. ABDOMEN: Soft, no tenderness. LABS: Hemoglobin is 10.2, white count 8.5, BUN of 21, creatinine 0.84. DIAGNOSTIC IMPRESSION AND PLAN: Patient with infected left gluteal wound. Culture with Beta Hemolytic Strep, Group C. shows inflammatory changes with some extension to the bone. The patient is waiting for the outpatient IV antibiotic arrangement and a Midline placement to continue cefazolin 2 grams q.8 hours. Monitor clinical course closely. MMODL / IJN: [id number] /
[2019-09-02 06:45] LABS: Basophils % (A) 0 %; Eosinophils # (A) 0.1 k/uL (0-0.7); Eosinophils % (A) 1 %; HCT 32.7 % (34.0-46.0); HGB 10.4 gm/dL (11.4-16.0); Lymphocytes # (A) 0.5 k/uL (1.0-4.8); Lymphocytes % (A) 6 %; MCH 29.3 pg (25.0-35.0); MCHC 31.9 g/dL (31.0-37.0); MCV 92.1 fL (80.0-100.0); Mean Platelet Volume 8.2; Monocytes # (A) 0.3 k/uL (0-1.0); Monocytes % (A) 3 %; Neutrophils # (A) 8.3 k/uL (1.3-7.7); Neutrophils % (A) 89 %; Platelet Count 206 k/uL (150-450); RBC 3.55 m/uL (3.80-5.40); RDW 14.9 % (11.5-15.5); WBC 9.3 k/uL (3.8-10.6)
[2019-09-02 07:02] LABS: Calcium 8.1 mg/dL (8.4-10.2); Potassium 4.4 mmol/L (3.5-5.1)
[2019-09-02] MEDS: ASCORBIC ACID 500 MG TAB PO SCH (08:30)
[2019-09-02] MEDS: CARBIDOPA-LEVODOPA 25-100 MG 1 EACH TAB PO SCH (08:30)
[2019-09-02] MEDS: DILTIAZEM ORAL 30 MG TAB PO SCH (08:30)
[2019-09-02] MEDS: ASPIRIN 81 MG PO SCH (08:30)
[2019-09-02] MEDS: DONEPEZIL 10 MG TAB PO SCH (08:30)
[2019-09-02] MEDS: CALCIUM CARBONATE 500 MG CHEWABLE PO SCH (08:30)
[2019-09-02] MEDS: CHOLECALCIFEROL 1,000 UNIT TAB PO SCH (08:30)
[2019-09-02] MEDS: METOPROLOL TARTRATE 25 MG TAB PO SCH (08:31)
[2019-09-02] MEDS: POLYETHYLENE GLYCOL 3350 17 GM POWD.PACK PO SCH (08:31)
[2019-09-02] MEDS: GABAPENTIN 100 MG CAP PO SCH (08:31)
[2019-09-02 08:44] VITALS: BP 131/82; PULSE 102; TEMP 98.4
--- NOTE | 2019-09-02 11:21 | CDI ---
Documentation Clarification Form Date: 09/02/2019 11:04:38 AM From: Kaye Trent CCS, CCDS Admit Date: 08/26/2019 06:08:00 PM Patient Name: Yris Isaac Visit Number: [id number] Discharge Date: ATTENTION: The Clinical Documentation Specialists (CDI) and [facility] Coding Staff appreciate your assistance in clarifying documentation. Please respond to the clarification below the line at the bottom and electronically sign. The CDI & [facility] Coding staff will review the response and follow-up if needed. Please note: Queries are made part of the Legal Health Record. If you have any questions, please contact the author of this message via ITS. Dr. Samuel Calderon: Per the Attending Progress Notes 08/30 & 08/31: "Left gluteal wound with possible osteomyelitis with beta hemolytic Streptococcus group C." History/Risk Factors: Persistent atrial fibrillation, Hyponatremia, CVA with cognitive defects, Mitral regurgitation, Parkinson's disease & spinal fusions x2. Clinical Indicators: Patient presented to the ED on 08/25 with fatigue & palpitations, recently diagnosed with atrial fibrillation as an outpatient by cardiology & was started on blood thinners. Diagnosed with Persistent Atrial Fibrillation & Hyponatremia. Vascular Surgery was consulted on 08/26 for a non- healing ulceration to the left gluteus, patient is known to the wound care center with history of a large abscess & history of previous spinal fusions x2. VS on admission: HR 148^ LAB 08/25: WBC 13.0^, Neut 11.7^, Na 128*, Glucose 128^. CRP 08/29: 248.7^ 08/25 Wound culture: Beta hemolytic Strep Group C RAD 08/29 CT Pelvis: Phlegmon or decompressed abscess with minimal air in left gluteal region. This extends adjacent to the left portion of the sacrum. No suspicious erosion to suggest osteomyelitis is evident. Treatment 3: IV Cardizem for Atrial Fibrillation, IV fluid rate 75. 3/: po Keflex, IV Cefazolin, Scheduled for PICC line placement prior to discharge. In your professional opinion, please specify the following: Osteomyelitis left gluteal ruled out Osteomyelitis left gluteal, please specify associated bacterial agent: o Please specify if acute or chronic Unable to Determine Other, please specify): (Last Revision: March 2017) *CDI: Query signed by covering attending physician: Dr. Saravia in Discharge Summary on 09/01: No osteomyelitis. MTDD
--- NOTE | 2019-09-02 13:22 | PN ---
PROGRESS NOTE DATE OF SERVICE: 09/02/2019. REASON FOR FOLLOWUP: Left gluteal wound infection. INTERVAL HISTORY: The patient is currently afebrile. She has been breathing comfortably. No chest pain or any cough. She has been complaining of dressing being wet too quickly. No nausea, no vomiting. No abdominal pain or any diarrhea. PHYSICAL EXAMINATION: Blood pressure is 131/82 with a pulse of 102, temperature 98.4. She is 99% on room air. General description is an elderly female up in the chair in no distress. RESPIRATORY SYSTEM: Unlabored breathing. Decreased breath sounds at the bases. No wheeze. HEART: S1, S2. Regular rate and rhythm. ABDOMEN: Soft, no tenderness. LABS: Hemoglobin is 10.4, white count 9.3, BUN of 22, creatinine 0.90. DIAGNOSTIC IMPRESSION AND PLAN: Patient with left gluteal nonhealing wound with secondary cellulitis with some extension to the bone on the CT. The patient is currently covered with cefazolin 2 grams q.8 hours to continue x4 weeks. Local care with dry Aquacel silver packing daily and a close outpatient followup. MMODL / IJN: [id number] /
--- NOTE | 2019-09-03 09:17 | P.DS ---
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 Omaira Cardenas upon discharge. Patient will continue with [facility] for IV antibiotic therapy also follow-up with Dr. Hale as well as Dr. Josh Dwyer in the outpatient setting. Patient will continue with IV antibiotic therapy in the form of cefazolin per infectious disease recommendations. Total time taken is 35 minutes. History of present illness This is a 79-year-old female who was recently admitted for left gluteal wound and possible osteomyelitis with beta hemolytic strep group C and was being closely monitored. Infectious disease was following. Patient received a PICC line and will continue with IV antibiotics in the form of cefazolin in the outpatient setting and will follow-up with Dr. Hale as well. Patient will continue with [facility] for IV antibiotic therapy and wound care. During hospitalization patient also underwent a JUANIS showing severe central mitral regurgitation with dilated mitral annulus along with mild left ventricular systolic dysfunction with an EF of 50%. Patient will follow-up with cardiology in the outpatient setting upon discharge. Currently no reports of chest pain, shortness of breath, or palpitations. Patient is afebrile. No reports of nausea or vomiting and patient is tolerating diet. Guarded prognosis. On exam vital signs are stable. Temp is 98.4 F, pulse is 102, respirations are 16, blood pressure is 131/82, oxygen saturation is 99% on room air. Cardio S1, S2 are muffled. Respiratory system shows diminished breath sounds at the bases with mild rhonchi with no wheezing noted. Abdomen is soft and nontender. Nervous system shows no focal deficits. Please refer to medication reconciliation sheet for a list of medications. Patient Condition at Discharge: Stable Plan - Discharge Summary New Discharge Prescriptions: New Diltiazem Oral [Cardizem*] 30 mg PO TID 30 Days #90 tab Metoprolol Tartrate [Lopressor] 75 mg PO BID 30 Days #180 tab Polyethylene Glycol 3350 [Miralax] 17 gm PO DAILY PRN #10 powd.pack PRN Reason: Constipation Gabapentin [Neurontin] 100 mg PO BID 7 Days #14 cap Sennosides-Docusate Sodium [Senokot-S] 2 each PO HS PRN #20 tab PRN Reason: Constipation ceFAZolin [Kefzol] 2 gm IVP Q8HR #83 bag Continue Cholecalciferol [Vitamin D3 (25 Mcg = 1000 Iu)] 1,000 unit PO DAILY Carbidopa-Levodopa 25-100 mg [Sinemet 25-100 mg] 1 tab PO QID Donepezil HCl [Aricept] 10 mg PO BID Calcium Carbonate [Calcium] 600 mg PO DAILY Aspirin [Adult Low Dose Aspirin EC] 81 mg PO DAILY Atorvastatin [Lipitor] 40 mg PO DAILY Ascorbic Acid [Vitamin C] 500 mg PO DAILY Apixaban [Eliquis] 5 mg PO BID Docusate [Colace] 100 mg PO BID PRN PRN Reason: Constipation Discontinued Metoprolol Succinate [Toprol XL] 50 mg PO DAILY Discharge Medication List Ascorbic Acid [Vitamin C] 500 mg PO DAILY 04/16/19 [History] Aspirin [Adult Low Dose Aspirin EC] 81 mg PO DAILY 04/16/19 [History] Atorvastatin [Lipitor] 40 mg PO DAILY 04/16/19 [History] Calcium Carbonate [Calcium] 600 mg PO DAILY 04/16/19 [History] Carbidopa-Levodopa 25-100 mg [Sinemet 25-100 mg] 1 tab PO QID 04/16/19 [History] Cholecalciferol [Vitamin D3 (25 Mcg = 1000 Iu)] 1,000 unit PO DAILY 04/16/19 [History] Donepezil HCl [Aricept] 10 mg PO BID 04/16/19 [History] Apixaban [Eliquis] 5 mg PO BID 08/26/19 [History] Docusate [Colace] 100 mg PO BID PRN 08/26/19 [History] Diltiazem Oral [Cardizem*] 30 mg PO TID 30 Days #90 tab 09/02/19 [Rx] Gabapentin [Neurontin] 100 mg PO BID 7 Days #14 cap 09/02/19 [Rx] Metoprolol Tartrate [Lopressor] 75 mg PO BID 30 Days #180 tab 09/02/19 [Rx] Polyethylene Glycol 3350 [Miralax] 17 gm PO DAILY PRN #10 powd.pack 09/02/19 [Rx] Sennosides-Docusate Sodium [Senokot-S] 2 each PO HS PRN #20 tab 09/02/19 [Rx] ceFAZolin [Kefzol] 2 gm IVP Q8HR #83 bag 09/02/19 [Rx] Follow up Appointment(s)/Referral(s): Omaira Cardenas MD [Primary Care Provider] - 09/04/19 10:00 am (Monday) Ky Hale MD [STAFF PHYSICIAN] - (Office will call with guidelines for follow up appointment. ) Josh Dwyer MD [STAFF PHYSICIAN] - 09/13/19 2:15 pm (Monday echo on the was cancelled) [facility], [NON-STAFF] - 1-2 Days Ambulatory/Diagnostic Orders: Basic Metabolic Panel [LAB.AMB] Time Frame: 2 Days, Location: None Selected Patient Instructions/Handouts: A-fib (Atrial Fibrillation) (DC), Mitral Regurgitation (DC), Wound Healing and Your Diet (DC), How to Care for Your Midline Catheter (DC) Activity/Diet/Wound Care/Special Instructions: Wound care instructions: Apply absorptive silver dry, dry gauze, ABDs and paper tape to secure change Monday Activity Limited until follow-up Follow-up with primary care provider upon discharge Continue current diet Repeat labs in 2-3 days Discharge Disposition: HOME WITH HOME HEALTH SERVICES
== END 2019-09-02 12:50 | disposition home health service (06) | DRG 309 ==
LOC: EC 16:24 → 3SCARD 18:08
PROVIDERS: ADMIT Family Medicine; ATTEND Family Medicine
PROC: B246ZZ4 Ultrasonography of Right and Left Heart, Transesophageal (ICD-10-PCS; principal; 2019-08-29 10:30)
PROC: 05HB33Z Insertion of Infusion Device into Right Basilic Vein, Percutaneous Approach (ICD-10-PCS; 2019-09-02 07:30)
DX: I48.19 Other persistent atrial fibrillation (principal); T81.31XA Disruption of external operation (surgical) wound, not elsewhere classified, initial encounter; E87.1 Hypo-osmolality and hyponatremia; L03.317 Cellulitis of buttock; L98.429 Non-pressure chronic ulcer of back with unspecified severity; D63.8 Anemia in other chronic diseases classified elsewhere; E78.5 Hyperlipidemia, unspecified; G20 Parkinson's disease; I10 Essential (primary) hypertension; I34.0 Nonrheumatic mitral (valve) insufficiency; K59.00 Constipation, unspecified; B95.4 Other streptococcus as the cause of diseases classified elsewhere; Z79.01 Long term (current) use of anticoagulants; Z79.02 Long term (current) use of antithrombotics/antiplatelets; Z79.82 Long term (current) use of aspirin; Z79.899 Other long term (current) drug therapy; Z85.820 Personal history of malignant melanoma of skin; I69.319 Unspecified symptoms and signs involving cognitive functions following cerebral infarction; Z87.891 Personal history of nicotine dependence; Z66 Do not resuscitate; M19.90 Unspecified osteoarthritis, unspecified site
CPT/HCPCS: 36410; 36415; 71046; 72192; 76937; 80048; 80053; 81001; 82550; 83735; 84443; 84484; 85025; 85610; 85652; 85730; 86140; 87070; 87205; 93005; 93306; 93312; 93320; 93325; 96365; 96366; 99291

== ENCOUNTER → 2019-10-31 | Outpatient (CLI) | payer MEDICARE, OTHER ==
--- NOTE | 2019-10-31 10:21 | CT ---
EXAMINATION TYPE: CT pelvis wo con DATE OF EXAM: 10/31/2019 COMPARISON: 10/30/2019 HISTORY: buttock wound CT DLP: 339.5 mGycm Automated exposure control for dose reduction was used. Unenhanced CT of the pelvis was performed. La ck of contrast medium does limit evaluation. FINDINGS: There is a left buttock wound noted with subcutaneous phlegmon and foci of air seen. Soft tissue phle gmon extends to the sacrococcygeal region without definite bony destructive process. I do not see fran dence for a drainable collection at this time. If there is clinical concern for osteomyelitis conside r WBC scan or bone scan. Extensive postoperative change lumbar spine. Moderate fecal stasis. Vascular calcifications. IMPRESSION: 1. Again noted is left buttock wound with subcutaneous phlegmon and air extending to the left sacroco ccygeal region. No bony destructive process seen to suggest osteomyelitis. See above.
== END | disposition home or self-care (01) ==
LOC: RADCTMAIN 09:19
PROVIDERS: ATTEND Internal Medicine Infectious Disease
DX: S31.829A Unspecified open wound of left buttock, initial encounter (principal); M53.3 Sacrococcygeal disorders, not elsewhere classified
CPT/HCPCS: 72192

== ENCOUNTER 2022-01-04 10:44 | Day surgery (SDC) | payer MEDICARE, OTHER ==
[2022-01-04] MEDS ORDERED: SODIUM CHLORIDE 0.9% 500 ML 500 ML IV ONE (10:59)
[2022-01-04 11:19] VITALS: RESP 16; TEMP 97.1
[2022-01-04] MEDS ORDERED: fentaNYL (PF) 50 MCG/ML 2 ML AMP ONE (11:50)
[2022-01-04] MEDS: BENZOCAINE SPRAY 1 CAN MUCOUS MEM ONE ×2 (11:53→12:00)
[2022-01-04] MEDS ORDERED: fentaNYL (PF) 50 MCG/ML 2 ML AMP IVP ONE (12:00)
[2022-01-04] MEDS ORDERED: MIDAZOLAM 2 MG/2 ML VIAL IVP ONE (12:00)
--- NOTE | 2022-01-04 12:46 | ECHOT ---
TRANSESOPHAGEAL ECHOCARDIOGRAM REFERRING PHYSICIAN: Dr. Huang. INDICATION: Severe mitral regurgitation. This is a 81-year-old lady with history of advanced Parkinson's, atrial flutter, hypertension, dyslipidemia, has severe mitral regurgitation, was advised to undergo transesophageal echo for further evaluation of the same. PROCEDURE NOTE: After obtaining informed consent, transesophageal echocardiogram is performed in left lateral position using an Omni plane probe. Local and IV sedation were obtained using Xylocaine spray, 1 mg of Versed and 25 mcg of fentanyl. The patient tolerated the procedure well without any obvious immediate complications. FINDINGS: 1. Mitral valve shows mitral annular calcification with calcified chordae. There is severe central mitral regurgitation noted. There is reversal of flow into the pulmonary veins. There is no evidence of mitral valve prolapse or flail mitral leaflet. 2. Aortic valve is a 3-leaflet valve, appears heavily calcified with severe restriction in leaflet mobility with a calculated valve area of around 0.7 squared cm consistent with severe aortic stenosis. However, with a 2D echo, the gradients across the aortic valve are only in the mild stenosis range. 3. Left atrium appears severely enlarged. 4. Right atrium, right ventricle exam within normal limits. 5. There is no evidence of [id number] shunt by color-flow Doppler or [id number] shunt by agitated saline contrast study. 6. There is moderate atherosclerotic changes involving the aorta. 7. Left ventricular size and systolic function are normal. CONCLUSIONS: 1. Severe central mitral regurgitation. 2. Severe left atrial enlargement. 3. Normal LV function. 4. Calcified aortic valve with severe restriction in leaflet mobility with planimetry suggestive of severe aortic stenosis. PLAN: I reviewed JUANIS findings with the daughter who is going to talk it out with the mother about further evaluation and treatment. I will see her back in the office in 2 weeks and if the patient wishes to have further intervention for the mitral and aortic valve, I will consider cardiac catheterization and refer her out. MMODL / IJN: [id number] /
[2022-01-04 13:53] VITALS: PULSE 102
[2022-01-04 15:08] VITALS: BP 128/62
== END 2022-01-04 14:34 | disposition home or self-care (01) ==
LOC: CATHCVL 10:44
PROVIDERS: ATTEND Internal Medicine Cardiovascular Disease
DX: I08.0 Rheumatic disorders of both mitral and aortic valves (principal); I51.7 Cardiomegaly; I10 Essential (primary) hypertension; I48.3 Typical atrial flutter; G20 Parkinson's disease; Z86.73 Personal history of transient ischemic attack (TIA), and cerebral infarction without residual deficits; Z82.49 Family history of ischemic heart disease and other diseases of the circulatory system; E78.2 Mixed hyperlipidemia; Z79.01 Long term (current) use of anticoagulants; Z79.82 Long term (current) use of aspirin; Z79.899 Other long term (current) drug therapy
CPT/HCPCS: 93312; 93320; 93325; J2250; J3010